=== PATIENT | male | born 1960 | race Two or more races ===

== ENCOUNTER → 2016-12-01 | Outpatient (CLI) | payer OTHER | END | disposition home or self-care (01) | LOC: PTMAIN 09:10 | PROVIDERS: ATTEND Otolaryngology | DX: K21.9 Gastro-esophageal reflux disease without esophagitis (principal); R13.10 Dysphagia, unspecified | CPT/HCPCS: 31579 ==

== ENCOUNTER 2017-12-22 15:03 | Inpatient (IN) | payer OTHER ==
--- NOTE | 2017-12-22 16:36 | ED ---
Skin/Abscess/FB HPI - General Chief complaint: Skin/Abscess/Foreign Body Stated complaint: Rash/Fever Time Seen by Provider: 12/22/17 16:12 Source: patient Mode of arrival: ambulatory Limitations: no limitations - History of Present Illness Initial comments: Is a 57-year-old male with a history of melanoma who is currently being treated with clotilde Kowalski who presents emergency department for right-sided chest wall redness and pain. He states it started approximately 3 hours ago. He states that he does have chronic lymphedema in that right chest and right arm from a previous surgery on his right neck. He states that around 3 hours ago all of a sudden he developed this bright red rash that he describes as a sunburn. He states that he's had this previously and they believed it was due to an infection however water unable to get to the bottom of the actual problem. Patient admits to feeling feverish and having a temp of 99.6 at home. He denies any nausea, vomiting, or diarrhea. No cough or shortness of breath. Denies any other acute complaints. His oncologist advised him to come to the emergency department. - Related Data Home Medications Medication Instructions Recorded Confirmed Aspirin EC [Ecotrin Low Dose] 81 mg PO DAILY 12/22/17 12/22/17 Chantix 1mg 1 mg PO BID 12/22/17 12/22/17 Dapagliflozin Propanediol [Farxiga] 10 mg PO DAILY 12/22/17 12/22/17 Ergocalciferol (Vitamin D2) 50,000 unit PO Q7D 12/22/17 12/22/17 [Vitamin D2] FLUoxetine HCL 40 mg PO DAILY 12/22/17 12/22/17 Levothyroxine Sodium [Synthroid] 150 mcg PO DAILY 12/22/17 12/22/17 Loratadine [Claritin] 10 mg PO DAILY 12/22/17 12/22/17 Metoclopramide HCl [Reglan] 5 mg PO ACHS PRN 12/22/17 12/22/17 Multivitamins, Thera [Multivitamin 1 tab PO DAILY 12/22/17 12/22/17 (formulary)] Omeprazole 20 mg PO DAILY 12/22/17 12/22/17 Allergies Allergy/AdvReac Type Severity Reaction Status Date / Time Iodinated Contrast- Oral and Allergy Nausea & Verified 12/22/17 16:12 IV Dye Vomiting & Diarrhea Review of Systems ROS Statement: Those systems with pertinent positive or pertinent negative responses have been documented in the HPI. ROS Other: All systems not noted in ROS Statement are negative. Past Medical History Past Medical History: Diabetes Mellitus, Hypertension Additional Past Medical History / Comment(s): metastatic melanoma, hairy cell leukemia History of Any Multi-Drug Resistant Organisms: None Reported Additional Past Surgical History / Comment(s): melanoma removal Past Psychological History: No Psychological Hx Reported Smoking Status: Current every day smoker Past Alcohol Use History: None Reported Past Drug Use History: None Reported General Exam - General Exam Comments Initial Comments: Constitutional: Awake alert Appears comfortable Head: Normocephalic atraumatic Eyes: no conjunctival injection No scleral icterus EOMI Neck: No JVD Supple Heart: Regular rate rhythm normal S1-S2 no murmurs Lungs: Clear to auscultation bilaterally No wheezing No rales : Chest wall there is redness and edema to the right chest. It extends from the midline to the nipple line. The rash then extends through the nipple and into the axilla and slightly into the right medial arm. It is blanching. Nontender to palpation. Abdomen: Soft nondistended nontender Extremities: Non edematous DP pulses intact Radial pulses intact Neuro: A&Ox3 No focal neurologic deficits Psych: Appropriate mood and affect Limitations: no limitations Course Vital Signs 12/22/17 12/22/17 15:30 16:49 Temperature 99.6 F Pulse Rate 97 92 Respiratory 20 18 Rate Blood Pressure 127/82 136/73 O2 Sat by Pulse 97 95 Oximetry - Reevaluation(s) Reevaluation #1: 12/22/17 17:22 EKG showing normal sinus rhythm with a rate of 95. There is no abnormal ST segment changes or T-wave inversions. QTC is 469. Other intervals normal. No ectopy. Medical Decision Making - Medical Decision Making This is a 57-year-old male who presented to the emergency department for right chest wall redness. The patient appears to have what looks like cellulitis. He doesn't leukocytosis. Has had low-grade temps. I did speak with his oncologist, Dr. Jesi Forbes at [facility]. After discussion with her was decided that the patient could stay at this hospital however should probably stay overnight for monitoring. The patient was updated on this and agrees. Dr. Jesi Forbes stated that she can be reached on the online and be happy to speak to any of the physicians if need be. - Lab Data Result diagrams: 12/22/17 16:35 12/22/17 16:35 Lab Results 12/22/17 12/22/17 12/22/17 Range/Units 16:35 16:35 16:35 WBC 17.0 H (3.8-10.6) k/uL RBC 4.49 (4.30-5.90) m/uL Hgb 14.4 (13.0-17.5) gm/dL Hct 44.7 (39.0-53.0) % MCV 99.6 (80.0-100.0) fL MCH 32.1 (25.0-35.0) pg MCHC 32.3 (31.0-37.0) g/dL RDW 13.6 (11.5-15.5) % Plt Count 155 (150-450) k/uL Neutrophils % 91 % Lymphocytes % 3 % Monocytes % 3 % Eosinophils % 2 % Basophils % 0 % Neutrophils # 15.5 H (1.3-7.7) k/uL Lymphocytes # 0.6 L (1.0-4.8) k/uL Monocytes # 0.5 (0-1.0) k/uL Eosinophils # 0.3 (0-0.7) k/uL Basophils # 0.0 (0-0.2) k/uL PT (9.0-12.0) sec INR (<1.2) APTT (22.0-30.0) sec Sodium 136 L (137-145) mmol/L Potassium 4.4 (3.5-5.1) mmol/L Chloride 101 (98-107) mmol/L Carbon Dioxide 23 (22-30) mmol/L Anion Gap 12 mmol/L BUN 17 (9-20) mg/dL Creatinine 0.80 (0.66-1.25) mg/dL Est GFR (CKD-EPI)AfAm >90 (>60 ml/min/1.73 sqM) Est GFR (CKD-EPI)NonAf >90 (>60 ml/min/1.73 sqM) Glucose 121 H (74-99) mg/dL Plasma Lactic Acid Tom 1.6 (0.7-2.0) mmol/L Calcium 9.3 (8.4-10.2) mg/dL Total Bilirubin 0.6 (0.2-1.3) mg/dL AST 39 (17-59) U/L ALT 61 (21-72) U/L Alkaline Phosphatase 117 (38-126) U/L Total Protein 7.2 (6.3-8.2) g/dL Albumin 4.2 (3.5-5.0) g/dL Urine Color Urine Appearance (Clear) Urine pH (5.0-8.0) Ur Specific [place] (1.001-1.035) Urine Protein (Negative) Urine Glucose (UA) (Negative) Urine Ketones (Negative) Urine Blood (Negative) Urine Nitrite (Negative) Urine Bilirubin (Negative) Urine Urobilinogen (<2.0) mg/dL Ur Leukocyte Esterase (Negative) 12/22/17 12/22/17 Range/Units 16:35 16:35 WBC (3.8-10.6) k/uL RBC (4.30-5.90) m/uL Hgb (13.0-17.5) gm/dL Hct (39.0-53.0) % MCV (80.0-100.0) fL MCH (25.0-35.0) pg MCHC (31.0-37.0) g/dL RDW (11.5-15.5) % Plt Count (150-450) k/uL Neutrophils % % Lymphocytes % % Monocytes % % Eosinophils % % Basophils % % Neutrophils # (1.3-7.7) k/uL Lymphocytes # (1.0-4.8) k/uL Monocytes # (0-1.0) k/uL Eosinophils # (0-0.7) k/uL Basophils # (0-0.2) k/uL PT 9.7 (9.0-12.0) sec INR 1.0 (<1.2) APTT 24.1 (22.0-30.0) sec Sodium (137-145) mmol/L Potassium (3.5-5.1) mmol/L Chloride (98-107) mmol/L Carbon Dioxide (22-30) mmol/L Anion Gap mmol/L BUN (9-20) mg/dL Creatinine (0.66-1.25) mg/dL Est GFR (CKD-EPI)AfAm (>60 ml/min/1.73 sqM) Est GFR (CKD-EPI)NonAf (>60 ml/min/1.73 sqM) Glucose (74-99) mg/dL Plasma Lactic Acid Tom (0.7-2.0) mmol/L Calcium (8.4-10.2) mg/dL Total Bilirubin (0.2-1.3) mg/dL AST (17-59) U/L ALT (21-72) U/L Alkaline Phosphatase (38-126) U/L Total Protein (6.3-8.2) g/dL Albumin (3.5-5.0) g/dL Urine Color Yellow Urine Appearance Clear (Clear) Urine pH 5.5 (5.0-8.0) Ur Specific [place] 1.016 (1.001-1.035) Urine Protein Negative (Negative) Urine Glucose (UA) 4+ H (Negative) Urine Ketones 1+ H (Negative) Urine Blood Negative (Negative) Urine Nitrite Negative (Negative) Urine Bilirubin Negative (Negative) Urine Urobilinogen <2.0 (<2.0) mg/dL Ur Leukocyte Esterase Negative (Negative) Disposition Clinical Impression: Cellulitis, Leukocytosis Disposition: ADMITTED IP TO THIS HOSP Condition: Stable Referrals: Kenyon Pierce MD [Primary Care Provider] - 1-2 days
[2017-12-22] MEDS: SODIUM CHLORIDE 0.9% 500 ML IV SCH ×3 (16:42→18:52)
[2017-12-22 16:52] LABS: Appearance,Urine Clear (Clear); Bilirubin,Urine Negative (Negative); Blood,Urine Negative (Negative); Color,Urine Yellow; Glucose,Urine (UA) 4+ (Negative); Ketones,Urine 1+ (Negative); Leukocyte Esterase,Urine Negative (Negative); Nitrite,Urine Negative (Negative); PH, Urine 5.5 (5.0-8.0); Protein,Urine Negative (Negative); Specific Gravity,Urine 1.016 (1.001-1.035); Urobilinogen,Urine <2.0 mg/dL (<2.0)
[2017-12-22 16:54] LABS: Basophils % (A) 0 %; Eosinophils # (A) 0.3 k/uL (0-0.7); Eosinophils % (A) 2 %; HCT 44.7 % (39.0-53.0); HGB 14.4 gm/dL (13.0-17.5); Lymphocytes # (A) 0.6 k/uL (1.0-4.8); Lymphocytes % (A) 3 %; MCH 32.1 pg (25.0-35.0); MCHC 32.3 g/dL (31.0-37.0); MCV 99.6 fL (80.0-100.0); Mean Platelet Volume 7.7; Monocytes # (A) 0.5 k/uL (0-1.0); Monocytes % (A) 3 %; Neutrophils # (A) 15.5 k/uL (1.3-7.7); Neutrophils % (A) 91 %; Platelet Count 155 k/uL (150-450); RBC 4.49 m/uL (4.30-5.90); RDW 13.6 % (11.5-15.5)
[2017-12-22 17:01] LABS: ALT 61 U/L (21-72); AST 39 U/L (17-59); Albumin 4.2 g/dL (3.5-5.0); Alkaline Phosphatase 117 U/L (38-126); Anion Gap 12 mmol/L; Blood Urea Nitrogen 17 mg/dL (9-20); Calcium 9.3 mg/dL (8.4-10.2); Carbon Dioxide 23 mmol/L (22-30); Chloride 101 mmol/L (98-107); Glucose 121 mg/dL (74-99); Potassium 4.4 mmol/L (3.5-5.1); Sodium 136 mmol/L (137-145); Total Bilirubin 0.6 mg/dL (0.2-1.3); Total Protein 7.2 g/dL (6.3-8.2)
[2017-12-22 17:03] LABS: Partial Thromboplastin Time 24.1 sec (22.0-30.0); Prothrombin Time 9.7 sec (9.0-12.0)
[2017-12-22] MEDS ORDERED: VANCOMYCIN IV PER PHARMACY 1 EACH MISC MISCELLANE PRN (17:12)
[2017-12-22] MEDS ORDERED: PIPERACILLIN-TAZOBACTAM 3.375 GM in DEXTROSE/WATER 1 50ML.BAG IVPB STA (17:12)
[2017-12-22] MEDS ORDERED: VANCOMYCIN 1,750 MG in SODIUM CHLORIDE 0.9% 250 ML IVPB ONE (17:30)
[2017-12-22] MEDS ORDERED: VANCOMYCIN 1,750 MG in SODIUM CHLORIDE 0.9% 500 ML IVPB ONE (17:34)
[2017-12-22] MEDS ORDERED: NALOXONE 0.4 MG/ML 1 ML VIAL IV PRN ×2 (17:41→18:09)
[2017-12-22] MEDS ORDERED: MORPHINE SULFATE 4 MG/ML SYRINGE IV PRN (18:09)
[2017-12-22] MEDS ORDERED: ACETAMINOPHEN TAB 325 MG TAB PO PRN (18:09)
--- NOTE | 2017-12-22 18:31 | P.HPIM ---
History of Present Illness H&P Date: 12/22/17 Chief Complaint: Skin redness, fevers 57-year-old M with PMH of melanoma, hypertension, diabetes presents to the ED for right chest redness and fevers that has been ongoing since this afternoon. Patient reports going to his oncologist this Monday to receive his treatment for melanoma. Patient underwent infusion of Keytruda. Patient reports a history of lymphedema in the right upper extremity, was given compression stockings to go home. Patient reports right-sided, burning chest pain as well that started this afternoon. Patient states he also felt feverish, measured a temperature of 99.7F. Patient reports 2 previous incidents of right chest cellulitis. Patient reports being admitted at [facility] and [facility]. Last episode was 1-1/2 months ago. Patient denies any chest trauma, nausea, vomiting, cough, shortness of breath, palpitations, any changes in urination or bowel habits. He denies any changes in appetite or weight. Patient does report a pounding frontal headache that began this afternoon. He also endorses whole body aches and myalgias that also started this afternoon. In the ED, patient was noted to have a low-grade temperature of 99.6F. CBC showed a leukocytosis of 17.0 with left shift. Blood work was notable for a sodium of 136, glucose of 121. Urinalysis showed 4+ glucose and 1+ ketones. Patient is admitted for IV antibiotics. Review of Systems All systems: negative Past Medical History Past Medical History: Diabetes Mellitus, Hypertension Additional Past Medical History / Comment(s): metastatic melanoma, hairy cell leukemia History of Any Multi-Drug Resistant Organisms: None Reported Additional Past Surgical History / Comment(s): melanoma removal Past Psychological History: No Psychological Hx Reported Smoking Status: Current every day smoker Past Alcohol Use History: None Reported Past Drug Use History: None Reported Medications and Allergies Home Medications Medication Instructions Recorded Confirmed Type Aspirin EC [Ecotrin Low Dose] 81 mg PO DAILY 12/22/17 12/22/17 History Chantix 1mg 1 mg PO BID 12/22/17 12/22/17 History Dapagliflozin Propanediol [Farxiga] 10 mg PO DAILY 12/22/17 12/22/17 History Ergocalciferol (Vitamin D2) 50,000 unit PO Q7D 12/22/17 12/22/17 History [Vitamin D2] FLUoxetine HCL 40 mg PO DAILY 12/22/17 12/22/17 History Levothyroxine Sodium [Synthroid] 150 mcg PO DAILY 12/22/17 12/22/17 History Loratadine [Claritin] 10 mg PO DAILY 12/22/17 12/22/17 History Metoclopramide HCl [Reglan] 5 mg PO ACHS PRN 12/22/17 12/22/17 History Multivitamins, Thera [Multivitamin 1 tab PO DAILY 12/22/17 12/22/17 History (formulary)] Omeprazole 20 mg PO DAILY 12/22/17 12/22/17 History Allergies Allergy/AdvReac Type Severity Reaction Status Date / Time Iodinated Contrast- Oral and Allergy Nausea & Verified 12/22/17 16:12 IV Dye Vomiting & Diarrhea Physical Exam Vitals: Vital Signs Temp Pulse Resp BP Pulse Ox 12/22/17 18:06 99.4 F 96 18 144/72 95 12/22/17 16:49 92 18 136/73 95 12/22/17 15:30 99.6 F 97 20 127/82 97 Intake and Output 12/22/17 12/22/17 12/22/17 06:59 14:59 22:59 Other: Weight 87.997 kg General: [non toxic], [no distress], [appears at stated age] Derm: [warm], [dry], [erythema over the right shoulder and the right chest] Head: [atraumatic], [normocephalic], [symmetric] Eyes: [EOMI], [no lid lag], [anicteric sclera] Mouth: [no lip lesion], [mucus membranes moist] Cardiovascular: [S1S2 reg], [no murmur], [positive posterior tibial pulse bilateral], [chest wall nontender to palpation] Lungs: [CTA bilateral], [no rhonchi, no rales] , [no accessory muscle use] Abdominal: [soft], [ nontender to palpation], [no guarding], [no appreciable organomegaly] Ext: [no gross muscle atrophy], [no edema], [no contractures] Neuro: [ CN II-XI grossly intact], [no focal neuro deficits] Psych: [Alert], [oriented], [appropriate affect] Results CBC & Chem 7: 12/22/17 16:35 12/22/17 16:35 Labs: Abnormal Lab Results - Last 24 Hours (Table) 12/22/17 12/22/17 12/22/17 Range/Units 16:35 16:35 16:35 WBC 17.0 H (3.8-10.6) k/uL Neutrophils # 15.5 H (1.3-7.7) k/uL Lymphocytes # 0.6 L (1.0-4.8) k/uL Sodium 136 L (137-145) mmol/L Glucose 121 H (74-99) mg/dL Urine Glucose (UA) 4+ H (Negative) Urine Ketones 1+ H (Negative) Thrombosis Risk Factor Assmnt - Choose All That Apply Any of the Below Risk Factors Present?: Yes Each Factor Represents 1 point: Age 41-60 years Other Risk Factors: Yes Each Risk Factor Represents 2 Points: Malignancy Thrombosis Risk Factor Assessment Total Risk Factor Score: 3 Thrombosis Risk Factor Assessment Level: Moderate Risk Assessment and Plan Assessment: Assessment and Plan 1. R chest cellulitis: Patient is immunocompromised with a h/o lymphedema in the RUE. Pain management with Tylenol PO, [place] PO and Morphine IV PRN. Start Vancomycin and Zosyn IV. RUE elevation. Compression stockings when able. FU BCx 2. Melanoma: Followed by Dr. Jesi Forbes at [facility]. 3. Hairy cell leukemia: Followed by Dr. Demarcus Cordova at [facility]. 4. HTN: BP 144/72. States is on Metoprolol at home. Unsure of dosage, will hold as BP is OK. Monitor vitals, adjust medications as necessary. 5. DM: POC glucose 121. PO meds at home. Diabetic diet. ISS. Accuchecks QID. Hypoglycemic precautions. FU A1c 6. Smoking cessation: Continue Chantix 1 mg PO BID. 7. Hypothyroidism: Continue Synthroid 150 mcg PO QD. 8. Depression: Continue Fluoxetine 40 mg PO QD. 9. DVT/GI Prophylaxis: Lovenox 40 mg SQ QD.
[2017-12-22] MEDS: HYDROcodone/APAP 5-325MG 1 EACH TAB PO PRN (18:59)
[2017-12-22] MEDS: VARENICLINE 1 MG TAB PO SCH (19:52)
[2017-12-23] MEDS: PIPERACILLIN-TAZOBACTAM 3.375 GM in DEXTROSE/WATER 1 50ML.BAG IVPB SCH ×3 (01:37→16:49)
[2017-12-23] MEDS ORDERED: MORPHINE ORAL SOLN 10 MG/5 ML CUP PO PRN (05:59)
[2017-12-23] MEDS: HYDROcodone/APAP 5-325MG 1 EACH TAB PO PRN (06:22)
[2017-12-23 07:12] LABS: Glucose,Whole Blood 162 mg/dL (75-99)
[2017-12-23 07:18] LABS: Basophils % (A) 0 %; Eosinophils # (A) 0.1 k/uL (0-0.7); Eosinophils % (A) 1 %; HCT 42.5 % (39.0-53.0); HGB 13.8 gm/dL (13.0-17.5); Lymphocytes # (A) 0.5 k/uL (1.0-4.8); Lymphocytes % (A) 6 %; MCH 32.2 pg (25.0-35.0); MCHC 32.5 g/dL (31.0-37.0); MCV 98.9 fL (80.0-100.0); Mean Platelet Volume 8.1; Monocytes # (A) 0.4 k/uL (0-1.0); Monocytes % (A) 4 %; Neutrophils # (A) 8.5 k/uL (1.3-7.7); Neutrophils % (A) 89 %; Platelet Count 128 k/uL (150-450); RDW 13.4 % (11.5-15.5); WBC 9.5 k/uL (3.8-10.6)
[2017-12-23] MEDS: LEVOTHYROXINE 75 MCG TAB PO SCH (07:39)
[2017-12-23] MEDS: PANTOPRAZOLE 40 MG TABLET PO SCH (07:39)
[2017-12-23] MEDS: ASPIRIN 81 MG PO SCH (07:39)
[2017-12-23] MEDS: VARENICLINE 1 MG TAB PO SCH ×2 (07:40→20:24)
[2017-12-23] MEDS: INSULIN ASPART 100 UNIT/ML 1 ML 10 ML VIAL SQ SCH ×3 (07:40→17:37)
[2017-12-23] MEDS: VANCOMYCIN 1,500 MG in SODIUM CHLORIDE 0.9% 250 ML IVPB SCH ×2 (07:40→20:24)
[2017-12-23] MEDS: FLUoxetine HCL 20 MG CAP PO SCH (07:40)
[2017-12-23] MEDS: ENOXAPARIN 40 MG/0.4 ML SYRINGE SQ SCH (07:40)
[2017-12-23 11:28] LABS: Glucose,Whole Blood 143 mg/dL (75-99)
[2017-12-23 13:17] LABS: Hemoglobin A1C 7.1 % (4.0-6.0)
--- NOTE | 2017-12-23 13:20 | P.PN ---
Subjective Progress Note Date: 12/23/17 Principal diagnosis: Right chest redness and swelling Patient seen and examined. No. Patient denies any fever or chills. He denies any chest pain, shortness of breath, palpitations. Patient reports improvement in right chest redness. He has no other complaints today. Objective - Vital Signs Vital signs: Vital Signs Temp 98.4 F 12/23/17 06:18 Pulse 89 12/23/17 06:18 Resp 18 12/23/17 06:18 BP 136/64 12/23/17 06:18 Pulse Ox 94 L 12/23/17 06:18 Intake & Output 12/22/17 12/23/17 12/23/17 18:59 06:59 18:59 Intake Total 1200 Balance 1200 Weight 87.997 kg 87.997 kg Intake: Intake, IV Titration 1200 Amount Piperacillin-Tazobactam 3 100 .375 gm In Dextrose/Water 1 50ml.bag @ 12.5 mls/hr IVPB Q8HR [facility] Rx#: [id number] Sodium Chloride 0.9% 500 850 ml @ 1000 mls/hr IV Q35M [facility] Rx#:[id number] Vancomycin 1,500 mg In 250 Sodium Chloride 0.9% 250 ml @ 125 mls/hr IVPB Q12HR [facility] Rx#:[id number] Other: Voiding Method Toilet Toilet # Voids 1 - Exam General: [non toxic], [no distress], [appears at stated age] Derm: [warm], [dry], [erythema over the right shoulder and the right chest, improved from yesterday] Head: [atraumatic], [normocephalic], [symmetric] Eyes: [EOMI], [no lid lag], [anicteric sclera] Mouth: [no lip lesion], [mucus membranes moist] Cardiovascular: [S1S2 reg], [no murmur], [positive posterior tibial pulse bilateral], [chest wall nontender to palpation] Lungs: [CTA bilateral], [no rhonchi, no rales] , [no accessory muscle use] Abdominal: [soft], [ nontender to palpation], [no guarding], [no appreciable organomegaly] Ext: [no gross muscle atrophy], [no edema], [no contractures] Neuro: [ CN II-XI grossly intact], [no focal neuro deficits] Psych: [Alert], [oriented], [appropriate affect] - Labs CBC & Chem 7: 12/23/17 06:16 12/22/17 16:35 Labs: Abnormal Lab Results - Last 24 Hours (Table) 12/22/17 12/22/17 12/22/17 Range/Units 16:35 16:35 16:35 WBC 17.0 H (3.8-10.6) k/uL Plt Count (150-450) k/uL Neutrophils # 15.5 H (1.3-7.7) k/uL Lymphocytes # 0.6 L (1.0-4.8) k/uL Sodium 136 L (137-145) mmol/L Glucose 121 H (74-99) mg/dL POC Glucose (mg/dL) (75-99) mg/dL Urine Glucose (UA) 4+ H (Negative) Urine Ketones 1+ H (Negative) 12/23/17 12/23/17 12/23/17 Range/Units 06:16 07:11 11:28 WBC (3.8-10.6) k/uL Plt Count 128 L (150-450) k/uL Neutrophils # 8.5 H (1.3-7.7) k/uL Lymphocytes # 0.5 L (1.0-4.8) k/uL Sodium (137-145) mmol/L Glucose (74-99) mg/dL POC Glucose (mg/dL) 162 H 143 H (75-99) mg/dL Urine Glucose (UA) (Negative) Urine Ketones (Negative) Microbiology - Last 24 Hours (Table) 12/22/17 16:35 Urine Culture - Preliminary Urine,Voided Assessment and Plan Assessment: Assessment and Plan 1. R chest cellulitis: Patient is immunocompromised with a h/o lymphedema in the RUE. Patient is afebrile, leukocytosis on admission of 17 which resolved this morning. Pain management with Tylenol PO, [place] PO and Morphine IV PRN. Continue Vancomycin and Zosyn IV. RUE elevation. Compression stockings when able. FU BCx 2. Melanoma: [facility] 3. Hairy cell leukemia: Followed by Dr. Demarcus Cordova at [facility] . 4. HTN: BP 136/64. States is on Metoprolol at home. Monitor vitals, adjust medications as necessary. 5. DM: POC glucose 143. PO meds at home. Diabetic diet. ISS. Accuchecks QID. Hypoglycemic precautions. FU A1c 6. Smoking cessation: Continue Chantix 1 mg PO BID. 7. Hypothyroidism: Continue Synthroid 150 mcg PO QD. 8. Depression: Continue Fluoxetine 40 mg PO QD. 9. DVT/GI Prophylaxis: Lovenox 40 mg SQ QD. We'll continue IV antibiotics. Pending clinical improvement. Anticipated discharge tomorrow.
[2017-12-23 16:54] LABS: Glucose,Whole Blood 161 mg/dL (75-99)
[2017-12-23 20:51] LABS: Glucose,Whole Blood 155 mg/dL (75-99)
[2017-12-23 21:52] VITALS: RESP 18
[2017-12-24] MEDS: PIPERACILLIN-TAZOBACTAM 3.375 GM in DEXTROSE/WATER 1 50ML.BAG IVPB SCH ×2 (01:24→07:31)
[2017-12-24 05:43] VITALS: BP 158/72; PULSE 67; TEMP 97.5
[2017-12-24 06:55] LABS: Glucose,Whole Blood 151 mg/dL (75-99)
[2017-12-24] MEDS: FLUoxetine HCL 20 MG CAP PO SCH (07:31)
[2017-12-24] MEDS: PANTOPRAZOLE 40 MG TABLET PO SCH (07:31)
[2017-12-24] MEDS: ASPIRIN 81 MG PO SCH (07:31)
[2017-12-24] MEDS: LEVOTHYROXINE 75 MCG TAB PO SCH (07:31)
[2017-12-24] MEDS: ENOXAPARIN 40 MG/0.4 ML SYRINGE SQ SCH (07:31)
[2017-12-24] MEDS: VARENICLINE 1 MG TAB PO SCH (07:31)
[2017-12-24] MEDS: VANCOMYCIN 1,500 MG in SODIUM CHLORIDE 0.9% 250 ML IVPB SCH (07:32)
[2017-12-24] MEDS: INSULIN ASPART 100 UNIT/ML 1 ML 10 ML VIAL SQ SCH (07:32)
--- NOTE | 2017-12-24 10:56 | P.DS ---
Providers Date of admission: 12/23/17 09:18 Expected date of discharge: 12/24/17 Attending physician: Antonella Che MD Primary care physician: Kenyon Pierce - Discharge Diagnosis(es) (1) Melanoma Current Visit: Yes Status: Acute (2) Hairy cell leukemia Current Visit: Yes Status: Acute (3) HTN (hypertension) Current Visit: Yes Status: Acute (4) Diabetes mellitus Current Visit: Yes Status: Acute (5) Hypothyroidism Current Visit: Yes Status: Acute (6) Depression Current Visit: Yes Status: Acute (7) Cellulitis Current Visit: Yes Status: Acute Hospital Course: 57-year-old M with PMH of melanoma, hypertension, diabetes presents to the ED for right chest redness and fevers that has been ongoing since this afternoon. Patient reports going to his oncologist this Monday to receive his treatment for melanoma. Patient underwent infusion of Keytruda. Patient reports a history of lymphedema in the right upper extremity, was given compression stockings to go home. Patient reports right-sided, burning chest pain as well that started this afternoon. Patient states he also felt feverish, measured a temperature of 99.7F. Patient reports 2 previous incidents of right chest cellulitis. Patient reports being admitted at [facility] and [facility]. Last episode was 1-1/2 months ago. Patient denies any chest trauma, nausea, vomiting, cough, shortness of breath, palpitations, any changes in urination or bowel habits. He denies any changes in appetite or weight. Patient does report a pounding frontal headache that began this afternoon. He also endorses whole body aches and myalgias that also started this afternoon. In the ED, patient was noted to have a low-grade temperature of 99.6F. CBC showed a leukocytosis of 17.0 with left shift. Blood work was notable for a sodium of 136, glucose of 121. Urinalysis showed 4+ glucose and 1+ ketones. Patient is admitted for IV antibiotics. his right chest cellulitis was demarcated with a marker. I noticed considerable improvement over the next 2 days of admission. Was initially started on vancomycin and Zosyn IV. patient's leukocytosis on admission resolved on day 2. He was afebrile during his admission. His antibiotics were descalated to Bactrim by mouth twice a day to complete a course of 14 days total.blood cultures were prelim negative after 24 hours on discharge. Patient reported that he followed up with Dr. Jesi Forbes at [facility] for his melanoma. Patient reported following up with Dr. Demarcus Cordova at [facility] for his hairy cell leukemia. Otherwise his home medications were resumed for his hypertension, diabetes, smoking cessation, hypothyroidism and depression. General: [non toxic], [no distress], [appears at stated age] Derm: [warm], [dry], [erythema over the right shoulder and the right chest, improved from yesterday] Head: [atraumatic], [normocephalic], [symmetric] Eyes: [EOMI], [no lid lag], [anicteric sclera] Mouth: [no lip lesion], [mucus membranes moist] Cardiovascular: [S1S2 reg], [no murmur], [positive posterior tibial pulse bilateral], [chest wall nontender to palpation] Lungs: [CTA bilateral], [no rhonchi, no rales] , [no accessory muscle use] Abdominal: [soft], [ nontender to palpation], [no guarding], [no appreciable organomegaly] Ext: [no gross muscle atrophy], [no edema], [no contractures] Neuro: [ CN II-XI grossly intact], [no focal neuro deficits] Psych: [Alert], [oriented], [appropriate affect] Assessment and Plan 1. R chest cellulitis: Patient is immunocompromised with a h/o lymphedema in the RUE. Patient is afebrile, leukocytosis on admission of 17 which resolved this morning. Pain management with Tylenol PO, [place] PO and Morphine IV PRN. DC Vancomycin and Zosyn IV, complete total of 14 days with Bactim DS PO BID. RUE elevation. Compression stockings when able. BCx prelim negative. FU BCx with PCP. 2. Melanoma: Followed by Dr. Jesi Forbes at [facility]. 3. Hairy cell leukemia: Followed by Dr. Demarcus Cordova at [facility]. 4. HTN: BP 158/72. States is on Metoprolol at home. Monitor vitals, adjust medications as necessary. 5. DM: POC glucose 151. PO meds at home. Diabetic diet. ISS. Accuchecks QID. Hypoglycemic precautions. FU A1c 6. Smoking cessation: Continue Chantix 1 mg PO BID. 7. Hypothyroidism: Continue Synthroid 150 mcg PO QD. 8. Depression: Continue Fluoxetine 40 mg PO QD. 9. DVT/GI Prophylaxis: Lovenox 40 mg SQ QD. This complex discharge took greater than 30 minutes. Pertinent Studies: Blood cultures Patient Condition at Discharge: Stable Plan - Discharge Summary Discharge Rx Participant: No New Discharge Prescriptions: New Acetaminophen Tab [Tylenol] 650 mg PO Q6HR PRN tab PRN Reason: Mild Pain Or Fever > 100.5 HYDROcodone/APAP 5-325MG [[place] 5-325] 1 each PO Q4HR PRN tab PRN Reason: Moderate Pain Sulfamethox-Tmp 800-160Mg [Bactrim DS 800-160 mg] 1 tab PO Q12HR #24 tab Continue FLUoxetine HCL 40 mg PO DAILY Omeprazole 20 mg PO DAILY Ergocalciferol (Vitamin D2) [Vitamin D2] 50,000 unit PO Q7D Chantix 1mg 1 mg PO BID Multivitamins, Thera [Multivitamin (formulary)] 1 tab PO DAILY Loratadine [Claritin] 10 mg PO DAILY Levothyroxine Sodium [Synthroid] 150 mcg PO DAILY Dapagliflozin Propanediol [Farxiga] 10 mg PO DAILY Aspirin EC [Ecotrin Low Dose] 81 mg PO DAILY Discontinued Metoclopramide HCl [Reglan] 5 mg PO ACHS PRN PRN Reason: Nausea And Vomiting Discharge Medication List Aspirin EC [Ecotrin Low Dose] 81 mg PO DAILY 12/22/17 [History] Chantix 1mg 1 mg PO BID 12/22/17 [History] Dapagliflozin Propanediol [Farxiga] 10 mg PO DAILY 12/22/17 [History] Ergocalciferol (Vitamin D2) [Vitamin D2] 50,000 unit PO Q7D 12/22/17 [History] FLUoxetine HCL 40 mg PO DAILY 12/22/17 [History] Levothyroxine Sodium [Synthroid] 150 mcg PO DAILY 12/22/17 [History] Loratadine [Claritin] 10 mg PO DAILY 12/22/17 [History] Multivitamins, Thera [Multivitamin (formulary)] 1 tab PO DAILY 12/22/17 [History ] Omeprazole 20 mg PO DAILY 12/22/17 [History] Acetaminophen Tab [Tylenol] 650 mg PO Q6HR PRN tab 12/24/17 [Rx] HYDROcodone/APAP 5-325MG [[place] 5-325] 1 each PO Q4HR PRN tab 12/24/17 [Rx] Sulfamethox-Tmp 800-160Mg [Bactrim DS 800-160 mg] 1 tab PO Q12HR #24 tab [Rx] Follow up Appointment(s)/Referral(s): Kenyon Pierce MD [Primary Care Provider] - 1-2 days Activity/Diet/Wound Care/Special Instructions: Diet: Regular diet. Please follow-up with your primary care provider within 1-2 days of discharge. Please follow-up with your oncologist within 1 week of discharge. Please take all medications as advised. Please come to the ED or call 911 for worsening fevers greater than 100.4F, chest pain, shortness of breath, palpitations, intractable nausea or vomiting. Note to PCP: Please follow up with Blood cultures during admission (preliminary negative on discharge) Discharge Disposition: HOME SELF-CARE Pending Studies Pending Results: Final blood cultures to be followed by PCP
[2017-12-24 11:27] LABS: Glucose,Whole Blood 202 mg/dL (75-99)
[2017-12-24] MEDS ORDERED: VANCOMYCIN TROUGH DUE 1 EACH MISC MISCELLANE ONE (20:00)
== END 2017-12-24 12:15 | disposition home or self-care (01) | DRG 603 ==
LOC: EC 15:03 → 5MS5E 17:41 → OBSVTOIN 12-23 09:18
PROVIDERS: ADMIT Family Medicine; ATTEND Family Medicine
DX: L03.313 Cellulitis of chest wall (principal); C79.9 Secondary malignant neoplasm of unspecified site; C91.40 Hairy cell leukemia not having achieved remission; C43.9 Malignant melanoma of skin, unspecified; D89.9 Disorder involving the immune mechanism, unspecified; E03.9 Hypothyroidism, unspecified; E11.9 Type 2 diabetes mellitus without complications; F17.200 Nicotine dependence, unspecified, uncomplicated; F32.9 Major depressive disorder, single episode, unspecified; I10 Essential (primary) hypertension; I89.0 Lymphedema, not elsewhere classified; M79.1 Myalgia; Z79.899 Other long term (current) drug therapy; Z79.82 Long term (current) use of aspirin; Z79.890 Hormone replacement therapy; Z91.041 Radiographic dye allergy status
CPT/HCPCS: 36415; 80053; 81003; 83036; 83605; 85025; 85610; 85730; 87040; 87086; 93005; 96365; 99284

== ENCOUNTER → 2019-04-02 | Outpatient (CLI) | payer SELFPAY ==
[2019-04-02 12:35] LABS: Basophils % (A) 0 %; Eosinophils # (A) 0.1 k/uL (0-0.7); Eosinophils % (A) 1 %; HCT 51.4 % (39.0-53.0); HGB 16.5 gm/dL (13.0-17.5); Lymphocytes # (A) 0.8 k/uL (1.0-4.8); Lymphocytes % (A) 6 %; MCH 33.7 pg (25.0-35.0); MCV 105.3 fL (80.0-100.0); Macrocytosis Slight; Mean Platelet Volume 7.8; Monocytes # (A) 0.4 k/uL (0-1.0); Monocytes % (A) 3 %; Neutrophils # (A) 11.6 k/uL (1.3-7.7); Neutrophils % (A) 89 %; Platelet Count 167 k/uL (150-450); RBC 4.88 m/uL (4.30-5.90)
[2019-04-02 15:42] LABS: African American GFR (CKD) 68.7 (60.0-200.0); Albumin 4.6 g/dL (3.80-4.90); Albumin/Globulin Ratio 2.09 (1.60-3.17); Anion Gap 9.6 mmol/L (4.00-12.00); BUN/Creat Ratio 24.62 Ratio (12.00-20.00); Calcium 9.8 mg/dL (8.7-10.3); Carbon Dioxide 28.4 mmol/L (21.6-31.8); Globulin 2.2 g/dL (1.6-3.3); Non-African American GFR(CKD) 59.3 (60.0-200.0); Potassium 4.7 mmol/L (3.5-5.5); Total Bilirubin 0.6 mg/dL (0.2-1.2); Total Protein 6.8 g/dL (6.2-8.2)
== END | disposition home or self-care (01) ==
LOC: LABWHC1 12:12
PROVIDERS: ATTEND Internal Medicine Medical Oncology
DX: C79.9 Secondary malignant neoplasm of unspecified site (principal)
CPT/HCPCS: 36415; 80053; 83615; 85025

== ENCOUNTER → 2019-04-09 | Outpatient (CLI) | payer SELFPAY ==
[2019-04-09 19:04] LABS: African American GFR (CKD) 62.8 (60.0-200.0); Albumin 4.3 g/dL (3.80-4.90); Albumin/Globulin Ratio 2.26 (1.60-3.17); Anion Gap 7.7 mmol/L (4.00-12.00); BUN/Creat Ratio 19.29 Ratio (12.00-20.00); Calcium 9.2 mg/dL (8.7-10.3); Carbon Dioxide 25.3 mmol/L (21.6-31.8); Globulin 1.9 g/dL (1.6-3.3); Non-African American GFR(CKD) 54.2 (60.0-200.0); Total Bilirubin 0.5 mg/dL (0.3-1.2); Total Protein 6.2 g/dL (6.2-8.2)
== END | disposition home or self-care (01) ==
LOC: LABWHC1 14:03
PROVIDERS: ATTEND Internal Medicine Medical Oncology
DX: C79.9 Secondary malignant neoplasm of unspecified site (principal)
CPT/HCPCS: 36415; 80053

== ENCOUNTER → 2019-04-15 | Outpatient (CLI) | payer OTHER ==
[2019-04-15 10:30] LABS: ALT 101 U/L (4-49); AST 43 U/L (17-59); African American GFR (CKD) >90 (>60 ml/min/1.73 sqM); Albumin 4.3 g/dL (3.5-5.0); Albumin/Globulin Ratio 1.4; Alkaline Phosphatase 89 U/L (38-126); Anion Gap 8 mmol/L; Blood Urea Nitrogen 24 mg/dL (9-20); Calcium 9.6 mg/dL (8.4-10.2); Carbon Dioxide 28 mmol/L (22-30); Chloride 106 mmol/L (98-107); Globulin 3.1 g/dL; Glucose 190 mg/dL (74-99); Non-African American GFR(CKD) 88 (>60 ml/min/1.73 sqM); Potassium 4.5 mmol/L (3.5-5.1); Sodium 142 mmol/L (137-145); Total Bilirubin 0.6 mg/dL (0.2-1.3); Total Protein 7.4 g/dL (6.3-8.2)
== END | disposition home or self-care (01) ==
LOC: LABWHC1 09:44
PROVIDERS: ATTEND Internal Medicine Medical Oncology
DX: R73.9 Hyperglycemia, unspecified (principal)
CPT/HCPCS: 36415; 80053

== ENCOUNTER → 2019-05-28 | Outpatient (CLI) | payer MEDICARE ==
[2019-05-28 10:09] LABS: Basophils # (A) 0.1 k/uL (0-0.2); Basophils % (A) 1 %; Eosinophils # (A) 0.1 k/uL (0-0.7); Eosinophils % (A) 1 %; HCT 48.2 % (39.0-53.0); HGB 15.5 gm/dL (13.0-17.5); Lymphocytes # (A) 1.8 k/uL (1.0-4.8); Lymphocytes % (A) 19 %; MCH 33.4 pg (25.0-35.0); MCHC 32.1 g/dL (31.0-37.0); Macrocytosis Slight; Mean Platelet Volume 8.1; Monocytes # (A) 0.3 k/uL (0-1.0); Monocytes % (A) 3 %; Neutrophils % (A) 75 %; Platelet Count 153 k/uL (150-450); RBC 4.63 m/uL (4.30-5.90); RDW 13.3 % (11.5-15.5); WBC 9.3 k/uL (3.8-10.6)
[2019-05-28 10:20] LABS: INR 0.9 (<1.2); Prothrombin Time 9.4 sec (9.0-12.0)
[2019-05-28 17:41] LABS: ALT 216 U/L (10-49); AST 52 U/L (14-35); African American GFR (CKD) 94.4 (60.0-200.0); Alkaline Phosphatase 71 U/L (41-126); Bilirubin, Conjugated <0.20 mg/dL (0.20-0.40); Calcium 9.7 mg/dL (8.7-10.3); Carbon Dioxide 28.9 mmol/L (21.6-31.8); Chloride 100 mmol/L (96-109); Globulin 1.8 g/dL (1.6-3.3); Glucose 306 mg/dL (70-110); Non-African American GFR(CKD) 81.4 (60.0-200.0); Potassium 4.6 mmol/L (3.5-5.5); Sodium 138 mmol/L (135-145); Total Bilirubin 0.5 mg/dL (0.3-1.2); Total Protein 6.3 g/dL (6.2-8.2)
== END | disposition home or self-care (01) ==
LOC: LABWHC1 09:01
PROVIDERS: ATTEND Internal Medicine
DX: R94.5 Abnormal results of liver function studies (principal)
CPT/HCPCS: 36415; 80053; 82248; 85025; 85610

== ENCOUNTER 2019-07-12 17:44 | Observation (INO) | payer MEDICARE ==
[2019-07-12] MEDS ORDERED: HEPARIN SODIUM,PORCINE 5,000 UNIT/ML 1 ML VIAL IV PRN (18:07)
[2019-07-12] MEDS ORDERED: HEPARIN SODIUM,PORCINE 10,000 UNIT/ML 1 ML VIAL IV ONE (18:07)
[2019-07-12] MEDS ORDERED: SODIUM CHLORIDE 0.9% 1,000 ML IV STA (18:07)
--- NOTE | 2019-07-12 18:08 | ED ---
SOB HPI - General Chief Complaint: Shortness of Breath Stated Complaint: PE Time Seen by Provider: 07/12/19 18:06 Source: patient, RN notes reviewed, old records reviewed Mode of arrival: ambulatory Limitations: no limitations - History of Present Illness Initial Comments: This is a 59-year-old male DF for evaluation patient having outpatient testing today different cancer follow-up. Patient is CT of his chest and pelvis at bedtime he has history of CAD, patient was found of PE told to come to the ER, the hospital for evaluation treatment. Patient has no complaints no chest pain no shortness of breath no prior history of PE. No cough congestion no fevers MD Complaint: shortness of breath -: days(s) Severity: moderate Severity scale (1-10): 5 Consistency: constant Improves With: nothing Worsens With: nothing Known History Of: other (CA) Context: anxiety Treatments Prior to Arrival: none - Related Data Home Medications Medication Instructions Recorded Confirmed Aspirin EC [Ecotrin Low Dose] 81 mg PO DAILY 12/22/17 12/22/17 Chantix 1mg 1 mg PO BID 12/22/17 12/22/17 Dapagliflozin Propanediol [Farxiga] 10 mg PO DAILY 12/22/17 12/22/17 Ergocalciferol (Vitamin D2) 50,000 unit PO Q7D 12/22/17 12/22/17 [Vitamin D2] FLUoxetine HCL 40 mg PO DAILY 12/22/17 12/22/17 Levothyroxine Sodium [Synthroid] 150 mcg PO DAILY 12/22/17 12/22/17 Loratadine [Claritin] 10 mg PO DAILY 12/22/17 12/22/17 Multivitamins, Thera [Multivitamin 1 tab PO DAILY 12/22/17 12/22/17 (formulary)] Omeprazole 20 mg PO DAILY 12/22/17 12/22/17 Previous Rx's Medication Instructions Recorded Acetaminophen Tab [Tylenol] 650 mg PO Q6HR PRN tab 12/24/17 HYDROcodone/APAP 5-325MG [[place] 1 each PO Q4HR PRN tab 12/24/17 5-325] Sulfamethox-Tmp 800-160Mg [Bactrim 1 tab PO Q12HR #24 tab 12/24/17 DS 800-160 mg] Allergies Allergy/AdvReac Type Severity Reaction Status Date / Time No Known Allergies Allergy Verified 07/12/19 18:13 Review of Systems ROS Statement: Those systems with pertinent positive or pertinent negative responses have been documented in the HPI. ROS Other: All systems not noted in ROS Statement are negative. Past Medical History Past Medical History: Cancer, Diabetes Mellitus, GERD/Reflux, Hypertension, Thyroid Disorder Additional Past Medical History / Comment(s): per pt dx 3-2016 w/ melanoma(rt upper chest ) had sx to remove cancer along with multiple lymph nodes rt axilla also had 20 radiation tx and is taking keytruda. pt further stated has mets to lung and " tiny spot outside the brain" had 1 intense radiation tx for spot on brain approx 6 months ago- other than lung bx-no other sx on lung but taking keytruda. 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 past gerd pt stated he's not taking meds for it any more. age 10 broke rt wrist-had it reset/casted. History of Any Multi-Drug Resistant Organisms: None Reported Additional Past Surgical History / Comment(s): melanoma /lymph nodes removal. age 10 had benign moles removed. Past Anesthesia/Blood Transfusion Reactions: No Reported Reaction Additional Past Anesthesia/Blood Transfusion Reaction / Comment(s): has had blood transfusions-no reaction Past Psychological History: No Psychological Hx Reported Smoking Status: Current every day smoker - Past Family History Mother Family Medical History: Dementia, Deep Vein Thrombosis (DVT), Hypertension Additional Family Medical History / Comment(s): from complications form alzheimers Father Family Medical History: CVA/TIA, Diabetes Mellitus, Hypertension Additional Family Medical History / Comment(s): hernias, colitis. General Exam Limitations: no limitations General appearance: alert, in no apparent distress, anxious Head exam: Present: atraumatic, normocephalic, normal inspection Eye exam: Present: normal appearance, PERRL, EOMI. Absent: scleral icterus, conjunctival injection, periorbital swelling ENT exam: Present: normal exam, mucous membranes moist Neck exam: Present: normal inspection. Absent: tenderness, meningismus, lymphadenopathy Respiratory exam: Present: normal lung sounds bilaterally. Absent: respiratory distress, wheezes, rales, rhonchi, stridor Cardiovascular Exam: Present: regular rate, normal rhythm, normal heart sounds. Absent: systolic murmur, diastolic murmur, rubs, gallop, clicks GI/Abdominal exam: Present: soft, normal bowel sounds. Absent: distended, tenderness, guarding, rebound, rigid Extremities exam: Present: normal inspection, full ROM, normal capillary refill. Absent: tenderness, pedal edema, joint swelling, calf tenderness Back exam: Present: normal inspection Neurological exam: Present: alert, oriented X3, CN II-XII intact Psychiatric exam: Present: normal affect, normal mood Skin exam: Present: warm, dry, intact, normal color. Absent: rash Course Vital Signs 07/12/19 07/12/19 17:45 19:00 Temperature 98.4 F Pulse Rate 94 77 Respiratory 18 19 Rate Blood Pressure 158/76 133/89 O2 Sat by Pulse 97 98 Oximetry - Reevaluation(s) Reevaluation #1: 07/12/19 19:53 medical record and outpatient scans are reviewed 07/12/19 19:53 small perigheral Rsided PE, no strain Medical Decision Making - Lab Data Result diagrams: 07/12/19 18:05 07/12/19 18:05 Lab Results 07/12/19 07/12/19 07/12/19 Range/Units 18:05 18:05 18:05 WBC 8.0 (3.8-10.6) k/uL RBC 4.52 (4.30-5.90) m/uL Hgb 15.2 (13.0-17.5) gm/dL Hct 46.9 (39.0-53.0) % MCV 103.8 H (80.0-100.0) fL MCH 33.6 (25.0-35.0) pg MCHC 32.4 (31.0-37.0) g/dL RDW 13.1 (11.5-15.5) % Plt Count 203 (150-450) k/uL Neutrophils % 75 % Lymphocytes % 15 % Monocytes % 6 % Eosinophils % 1 % Basophils % 1 % Neutrophils # 6.0 (1.3-7.7) k/uL Lymphocytes # 1.2 (1.0-4.8) k/uL Monocytes # 0.5 (0-1.0) k/uL Eosinophils # 0.1 (0-0.7) k/uL Basophils # 0.0 (0-0.2) k/uL Macrocytosis Slight PT 9.4 (9.0-12.0) sec INR 0.9 (<1.2) APTT 21.7 L (22.0-30.0) sec D-Dimer 2.81 H (<0.60) mg/L FEU Sodium 133 L (137-145) mmol/L Potassium 5.0 (3.5-5.1) mmol/L Chloride 102 (98-107) mmol/L Carbon Dioxide 20 L (22-30) mmol/L Anion Gap 11 mmol/L BUN 18 (9-20) mg/dL Creatinine 0.91 (0.66-1.25) mg/dL Est GFR (CKD-EPI)AfAm >90 (>60 ml/min/1.73 sqM) Est GFR (CKD-EPI)NonAf >90 (>60 ml/min/1.73 sqM) Glucose 308 H (74-99) mg/dL Calcium 9.6 (8.4-10.2) mg/dL Magnesium 2.1 (1.6-2.3) mg/dL Total Bilirubin 0.5 (0.2-1.3) mg/dL AST 94 H (17-59) U/L ALT 141 H (4-49) U/L Alkaline Phosphatase 91 (38-126) U/L Troponin I (0.000-0.034) ng/mL NT-Pro-B Natriuret Pep pg/mL Total Protein 7.4 (6.3-8.2) g/dL Albumin 4.4 (3.5-5.0) g/dL 07/12/19 07/12/19 Range/Units 18:05 18:05 WBC (3.8-10.6) k/uL RBC (4.30-5.90) m/uL Hgb (13.0-17.5) gm/dL Hct (39.0-53.0) % MCV (80.0-100.0) fL MCH (25.0-35.0) pg MCHC (31.0-37.0) g/dL RDW (11.5-15.5) % Plt Count (150-450) k/uL Neutrophils % % Lymphocytes % % Monocytes % % Eosinophils % % Basophils % % Neutrophils # (1.3-7.7) k/uL Lymphocytes # (1.0-4.8) k/uL Monocytes # (0-1.0) k/uL Eosinophils # (0-0.7) k/uL Basophils # (0-0.2) k/uL Macrocytosis PT (9.0-12.0) sec INR (<1.2) APTT (22.0-30.0) sec D-Dimer (<0.60) mg/L FEU Sodium (137-145) mmol/L Potassium (3.5-5.1) mmol/L Chloride (98-107) mmol/L Carbon Dioxide (22-30) mmol/L Anion Gap mmol/L BUN (9-20) mg/dL Creatinine (0.66-1.25) mg/dL Est GFR (CKD-EPI)AfAm (>60 ml/min/1.73 sqM) Est GFR (CKD-EPI)NonAf (>60 ml/min/1.73 sqM) Glucose (74-99) mg/dL Calcium (8.4-10.2) mg/dL Magnesium (1.6-2.3) mg/dL Total Bilirubin (0.2-1.3) mg/dL AST (17-59) U/L ALT (4-49) U/L Alkaline Phosphatase (38-126) U/L Troponin I <0.012 (0.000-0.034) ng/mL NT-Pro-B Natriuret Pep 38 pg/mL Total Protein (6.3-8.2) g/dL Albumin (3.5-5.0) g/dL - EKG Data -: EKG Interpreted by Me (EKG shows sinus rhythm of 84, OR 196, QRS 62, QTC 4:30) - Radiology Data Radiology results: report reviewed (CT angio Chest positive for PE) Critical Care Time Critical Care Time: Yes Total Critical Care Time: 31 Disposition Clinical Impression: Acute pulmonary embolism Disposition: ADMITTED IP TO THIS HOSP Condition: Good Is patient prescribed a controlled substance at d/c from ED?: No Referrals: Kenyon Pierce MD [Primary Care Provider] - 1-2 days
[2019-07-12] MEDS ORDERED: HEPARIN SOD,PORK IN 0.45% NACL 25,000 UNIT in 0.45% NACL 1 250ML.BAG IV SCH (18:15)
[2019-07-12 18:20] LABS: Basophils % (A) 1 %; Eosinophils # (A) 0.1 k/uL (0-0.7); Eosinophils % (A) 1 %; HCT 46.9 % (39.0-53.0); HGB 15.2 gm/dL (13.0-17.5); Lymphocytes # (A) 1.2 k/uL (1.0-4.8); Lymphocytes % (A) 15 %; MCH 33.6 pg (25.0-35.0); MCHC 32.4 g/dL (31.0-37.0); MCV 103.8 fL (80.0-100.0); Macrocytosis Slight; Mean Platelet Volume 8.7; Monocytes # (A) 0.5 k/uL (0-1.0); Monocytes % (A) 6 %; Neutrophils % (A) 75 %; Platelet Count 203 k/uL (150-450); RBC 4.52 m/uL (4.30-5.90); RDW 13.1 % (11.5-15.5)
[2019-07-12 18:30] LABS: ALT 141 U/L (4-49); AST 94 U/L (17-59); African American GFR (CKD) >90 (>60 ml/min/1.73 sqM); Albumin 4.4 g/dL (3.5-5.0); Alkaline Phosphatase 91 U/L (38-126); Anion Gap 11 mmol/L; Blood Urea Nitrogen 18 mg/dL (9-20); Calcium 9.6 mg/dL (8.4-10.2); Carbon Dioxide 20 mmol/L (22-30); Chloride 102 mmol/L (98-107); Glucose 308 mg/dL (74-99); Magnesium 2.1 mg/dL (1.6-2.3); Non-African American GFR(CKD) >90 (>60 ml/min/1.73 sqM); Sodium 133 mmol/L (137-145); Total Bilirubin 0.5 mg/dL (0.2-1.3); Total Protein 7.4 g/dL (6.3-8.2)
[2019-07-12 18:45] LABS: INR 0.9 (<1.2); Partial Thromboplastin Time 21.7 sec (22.0-30.0); Prothrombin Time 9.4 sec (9.0-12.0)
[2019-07-12 19:09] LABS: D-Dimer 2.81 mg/L FEU (<0.60)
[2019-07-12] MEDS ORDERED: NITROGLYCERIN SL TABS 0.4 MG TAB SUBLINGUAL PRN (19:51)
[2019-07-12] MEDS ORDERED: MORPHINE SULFATE 4 MG/ML SYRINGE IV PRN (19:51)
[2019-07-12] MEDS: SODIUM CHLORIDE 0.9% 1,000 ML IV SCH (22:18)
[2019-07-13 04:50] LABS: Glucose,Whole Blood 155 mg/dL (75-99)
[2019-07-13] MEDS: SODIUM CHLORIDE 0.9% 1,000 ML IV SCH (05:20)
[2019-07-13 07:08] LABS: Basophils % (A) 0 %; Eosinophils # (A) 0.1 k/uL (0-0.7); Eosinophils % (A) 2 %; HCT 40.6 % (39.0-53.0); HGB 13.4 gm/dL (13.0-17.5); Lymphocytes # (A) 1.2 k/uL (1.0-4.8); Lymphocytes % (A) 19 %; MCH 34.6 pg (25.0-35.0); MCHC 33.1 g/dL (31.0-37.0); MCV 104.4 fL (80.0-100.0); Macrocytosis Slight; Mean Platelet Volume 8.7; Monocytes # (A) 0.4 k/uL (0-1.0); Monocytes % (A) 7 %; Neutrophils # (A) 4.4 k/uL (1.3-7.7); Neutrophils % (A) 69 %; Platelet Count 143 k/uL (150-450); RBC 3.89 m/uL (4.30-5.90); RDW 13.1 % (11.5-15.5); WBC 6.3 k/uL (3.8-10.6)
[2019-07-13 07:24] LABS: INR 0.9 (<1.2); Prothrombin Time 9.9 sec (9.0-12.0)
[2019-07-13 09:00] LABS: Cholesterol 246 mg/dL (<200); HDL Cholesterol 56 mg/dL (40-60)
[2019-07-13] MEDS ORDERED: ASPIRIN 325 MG TAB PO SCH (09:00)
[2019-07-13 09:08] LABS: Triglycerides 591 mg/dL (<150)
--- NOTE | 2019-07-13 09:38 | CONS ---
CONSULTATION Mr. Wolfe is a 59-year-old gentleman who is seen for cardiac evaluation. This patient has a history of metastatic melanoma and has been followed at the [facility]. The patient had a routine CT scan at [facility] and patient was found to have a blood clot in his lung and the patient was advised to come over here. The patient denies any chest pain or shortness of breath. The patient has a history of diabetes, hypertension, and the patient denies any history of myocardial infarction, is physically and functionally active. HOME MEDICATIONS: The patient's home medications include aspirin once a day, Chantix 1 mg daily, Farxiga 10 mg daily, Synthroid, Claritin, Bactrim twice a day, hydrocodone, and Tylenol. REVIEW OF SYSTEMS: Otherwise unremarkable. PAST MEDICAL HISTORY: Includes a history of metastatic melanoma, history of hypertension and diabetes. PHYSICAL EXAMINATION: At present reveal a 59-year-old, obesely-built gentleman who does not appear to be in any acute distress. Blood pressure is 143/72 mmHg, the heart rate is 80 per minute. HEENT examination is negative. Neck is supple. There is no increase in jugular venous pressure. Both the carotid pulses are felt. There is no bruit. Chest is symmetrical. Heart PMI is not felt. First and second heart sounds were normal. There is no evidence of any murmur. Lungs are clinically clear to auscultation and percussion. Abdomen is soft. Liver and spleen are not enlarged. Bowel sounds are heard. Extremities, peripheral pulsations are 2+. EKG shows normal sinus rhythm with intermittent PVCs. Laboratory tests show patient's D-dimer was 2.81, hemoglobin is 13.4, troponins are normal, ProBNP level is 38. FINAL IMPRESSION: This patient has been diagnosed with a pulmonary embolism by CT scan. The patient has a history of metastatic melanoma. The patient is cardiac-putnam stable. The patient's proBNP level and troponins are normal. EKG does no show any abnormality. The patient has mildly elevated liver enzymes. The patient is started on heparin. We will get a heme/Onc consult for recommendation for the long-term anticoagulation. MMODL / IJN: [id number] /
[2019-07-13 09:53] LABS: African American GFR (CKD) >90 (>60 ml/min/1.73 sqM); Anion Gap 8 mmol/L; Blood Urea Nitrogen 15 mg/dL (9-20); Calcium 9.2 mg/dL (8.4-10.2); Carbon Dioxide 19 mmol/L (22-30); Chloride 110 mmol/L (98-107); Glucose 179 mg/dL (74-99); Non-African American GFR(CKD) >90 (>60 ml/min/1.73 sqM); Potassium 4.3 mmol/L (3.5-5.1); Sodium 137 mmol/L (137-145)
[2019-07-13] MEDS ORDERED: HYDROcodone/APAP 10-325MG 1 EACH TAB PO PRN (10:59)
[2019-07-13] MEDS ORDERED: ACETAMINOPHEN TAB 325 MG TAB PO PRN (10:59)
[2019-07-13] MEDS ORDERED: predniSONE 5 MG TAB PO SCH (11:00)
[2019-07-13] MEDS ORDERED: MULTIVITAMINS, THERA 1 EACH TAB PO SCH (11:00)
[2019-07-13] MEDS ORDERED: PANTOPRAZOLE 40 MG TABLET PO SCH (11:00)
[2019-07-13] MEDS ORDERED: LEVOTHYROXINE 75 MCG TAB PO SCH (11:00)
[2019-07-13] MEDS ORDERED: Canagliflozin [Invokana] PO SCH (11:00)
[2019-07-13] MEDS ORDERED: METOPROLOL TARTRATE 50 MG TAB PO SCH (11:00)
[2019-07-13] MEDS ORDERED: FLUoxetine HCL 20 MG CAP PO SCH (11:00)
[2019-07-13] MEDS ORDERED: METOCLOPRAMIDE 5 MG TAB PO SCH (11:00)
--- NOTE | 2019-07-13 11:06 | ECHOF ---
Referral Reason:PE MEASUREMENTS -------- HEIGHT: 170.2 cm WEIGHT: 84.4 kg BP: 138/77 RVIDd: 3.8 cm (< 3.3) IVSd: 1.4 cm (0.6 - 1.1) LVIDd: 3.4 cm (3.9 - 5.3) LVPWd: 1.6 cm (0.6 - 1.1) IVSs: 1.8 cm LVIDs: 2.3 cm LVPWs: 2.0 cm LAESV Index (A-L): 16.40 ml/m Ao Diam: 3.9 cm (2.0 - 3.7) AV Cusp: 2.1 cm (1.5 - 2.6) MV EXCURSION: 18.395 mm (> 18.000) MV EF SLOPE: 45 mm/s (70 - 150) EPSS: 1.1 cm MV E Cristian: 0.76 m/s MV DecT: 239 ms MV A Cristian: 0.86 m/s MV E/A Ratio: 0.88 RAP: 5.00 mmHg RVSP: 23.81 mmHg FINDINGS -------- Sinus rhythm. This was a technically difficult study with suboptimal apical views. The left ventricular size is normal. There is moderate concentric left ventricular hypertrophy. O verall left ventricular systolic function is normal with, an EF between 55 - 60 %. The diastolic fi lling pattern is normal for the age of the patient 10.06. The right ventricle is mildly enlarged. Normal LA size by volume 22+/-6 ml/m2. The right atrial size is normal. xx ml of Lumason was utilized for enhancement of images. Interatrial and interventricular septum intact. The aortic valve is trileaflet, and appears structurally normal. No aortic stenosis or regurgitation. The mitral valve is normal. There is trace mitral regurgitation. Mild tricuspid regurgitation present. There is no evidence of pulmonary hypertension. The right v entricular systolic pressure, as measured by Doppler, is 23.81mmHg. There is no pulmonic regurgitation present. The aortic root size is normal. IVC Not well visulized. There is no pericardial effusion. CONCLUSIONS -------- 1. Sinus rhythm. 2. This was a technically difficult study with suboptimal apical views. 3. The left ventricular size is normal. 4. There is moderate concentric left ventricular hypertrophy. 5. Overall left ventricular systolic function is normal with, an EF between 55 - 60 %. 6. The diastolic filling pattern is normal for the age of the patient 10.06 7. The right ventricle is mildly enlarged. 8. Normal LA size by volume 22+/-6 ml/m2. 9. xx ml of Lumason was utilized for enhancement of images. 10. The aortic valve is trileaflet, and appears structurally normal. No aortic stenosis or regurgitat ion. 11. There is trace mitral regurgitation. 12. Mild tricuspid regurgitation present. 13. There is no pulmonic regurgitation present. 14. IVC Not well visulized. 15. There is no pericardial effusion. GRADUATE INTERNSHIP: [employer]eballos RDCS
[2019-07-13] MEDS ORDERED: RIVAROXABAN 15 MG TAB PO SCH (12:00)
[2019-07-13 12:13] VITALS: BP 177/84; PULSE 82; RESP 18; TEMP 96.3
--- NOTE | 2019-07-13 12:53 | P.CNPUL ---
History of Present Illness Consult date: 07/13/19 Requesting physician: Pierce Barton Reason for consult: pulmonary embolism Chief complaint: Abnormal CT of the chest, positive for pulmonary embolism. History of present illness: This is a 59-year-old white male with known history of metastatic melanoma for the last 3 years. Patient is normally followed at the [facility], and he was requested to have a follow-up CT of the chest in [facility], patient went home and he was later notified that his CT of the chest showed p ulmonary embolism. Patient was advised to go to the emergency room . Patient had no pulmonary symptoms whatsoever. He had no cough no wheezing no shortness of breath no chest pain no fever no chills no hemoptysis. Presented to the ER, apparently the ER physician communicated with the facility where the CT of the chest was done, and he recommended that he gets admitted. Patient had no previous history of DVT or pulmonary embolism. In addition the patient did not have any single pulmonary symptoms whatsoever. Review of Systems Constitutional: Denies any constitutional symptoms. Pulmonary: Denies any pulmonary symptoms. Cardiac: Denies any chest pain, syncope, palpitations, diaphoresis. GI: Denies nausea vomiting abdominal pain melena or hematemesis Genitourinary: Denies any dysuria frequency urgency or hematuria. Neurologic: Denies any headache blurred vision or dizziness Psychiatric: Denies any symptoms of active depression Hematologic: Denies any clotting bleeding or bruising Endocrine: Denies any heat or cold intolerance Skin: Denies any rashes. Denies any pruritus. Musculoskeletal: Denies any limitation in range of motion denies any arthralgia or myalgia. Past Medical History Past Medical History: Cancer, Diabetes Mellitus, GERD/Reflux, Hypertension, Thyroid Disorder Additional Past Medical History / Comment(s): per pt dx 3-2017 w/ melanoma(rt upper chest ) had sx to remove cancer along with multiple lymph nodes rt axilla also had 20 radiation tx and is taking keytruda. pt further stated has mets to lung and " tiny spot outside the brain" had 1 intense radiation tx for spot on brain approx 6 months ago- other than lung bx-no other sx on lung but taking keytruda. 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 past gerd pt stated he's not taking meds for it any more. age 10 broke rt wrist-had it reset/casted. History of Any Multi-Drug Resistant Organisms: None Reported Additional Past Surgical History / Comment(s): melanoma /lymph nodes removal. age 10 had benign moles removed. Past Anesthesia/Blood Transfusion Reactions: No Reported Reaction Additional Past Anesthesia/Blood Transfusion Reaction / Comment(s): has had blood transfusions-no reaction Past Psychological History: No Psychological Hx Reported Smoking Status: Former smoker Past Alcohol Use History: None Reported Additional Past Alcohol Use History / Comment(s): started smoking at age 13 smokes 5-10 cig per day. Past Drug Use History: None Reported - Past Family History Mother Family Medical History: Dementia, Deep Vein Thrombosis (DVT), Hypertension Additional Family Medical History / Comment(s): from complications form alzheimers Father Family Medical History: CVA/TIA, Diabetes Mellitus, Hypertension Additional Family Medical History / Comment(s): hernias, colitis. Medications and Allergies Home Medications Medication Instructions Recorded Confirmed Type Aspirin EC [Ecotrin Low Dose] 81 mg PO DAILY 12/22/17 07/12/19 History Ergocalciferol (Vitamin D2) 50,000 unit PO Q7D 12/22/17 07/12/19 History [Vitamin D2] FLUoxetine HCL 40 mg PO DAILY 12/22/17 07/12/19 History Levothyroxine Sodium [Synthroid] 150 mcg PO DAILY 12/22/17 07/12/19 History Multivitamins, Thera [Multivitamin 1 tab PO DAILY 12/22/17 07/12/19 History (formulary)] Omeprazole 20 mg PO DAILY 12/22/17 07/12/19 History Acetaminophen Tab [Tylenol] 650 mg PO Q6HR PRN tab 12/24/17 07/12/19 Rx Canagliflozin [Invokana] 300 mg PO DAILY 07/12/19 07/12/19 History Dapagliflozin Propanediol [Farxiga] 10 mg PO DIRECTED 07/12/19 07/12/19 History HYDROcodone/APAP 10-325MG [[place] 1 tab PO BID PRN 07/12/19 07/12/19 History 10-325] Metoclopramide [Reglan] 5 mg PO DAILY 07/12/19 07/12/19 History Metoprolol Tartrate [Lopressor] 50 mg PO BID 07/12/19 07/12/19 History predniSONE 5 mg PO BID 07/12/19 07/12/19 History Rivaroxaban [Xarelto Starter Pack] 0 mg PO DIRECTED 30 Days #1 pack 07/13/19 Rx Allergies Allergy/AdvReac Type Severity Reaction Status Date / Time No Known Allergies Allergy Verified 07/12/19 20:33 Physical Exam Vitals: Vital Signs Temp Pulse Pulse Resp BP BP Pulse Ox 07/13/19 12:00 96.3 F L 82 18 177/84 97 07/13/19 08:58 97.8 F 07/13/19 08:00 79 16 143/72 95 07/13/19 03:22 97.6 F 68 18 138/77 97 07/13/19 01:32 98.0 F 63 18 130/75 95 07/12/19 22:32 97.5 F L 72 18 125/84 95 07/12/19 20:48 98.0 F 83 18 131/78 97 07/12/19 19:00 77 19 133/89 98 07/12/19 17:45 98.4 F 94 18 158/76 97 Intake and Output 07/12/19 07/13/19 07/13/19 22:59 06:59 14:59 Intake Total 630 875.927 358 Output Total 300 300 Balance 330 575.927 358 Intake: Intake, IV Titration 390 875.927 Amount Heparin Sod,Pork in 0.45% 115.927 NaCl 25,000 unit In 0.45 % NaCl 1 250ml.bag @ 18 UNITS/KG/HR 15.023 mls/hr IV .[id number] ROSA Rx#: [id number] Sodium Chloride 0.9% 1, 500 000 ml @ 100 mls/hr IV . Q10H ROSA Rx#:[id number] Sodium Chloride 0.9% 1, 390 260 000 ml @ 130 mls/hr IV . Q7H42M STA Rx#:[id number] Oral 240 358 Output: Urine 300 300 Other: Voiding Method Toilet Urinal Weight 83.461 kg 84.4 kg Physical Exam: Revealed a 59-year-old male no distress. Head: Atraumatic normocephalic. HEENT:[Neck is supple.] [No neck masses.] [No thyromegaly.] [No JVD.] Chest: [Clear throughout, no crackles, no rhonchi, no wheezes.] Cardiac Exam: [Normal S1 and S2, no S3 gallop, no murmur.] Abdomen: [Soft, nontender, no megaly, no rebound, no guarding, normal bowel sounds.] Extremities: [No clubbing, no edema, no cyanosis.] Neurological Exam: [No focal neurologic deficit.] Psychiatric: Normal mood affect and normal mental status examination. Skin: No rashes. Results - Laboratory Findings CBC and BMP: 07/13/19 06:48 07/13/19 06:48 PT/INR, D-dimer PT 9.9 sec (9.0-12.0) 07/13/19 06:48 INR 0.9 (<1.2) 07/13/19 06:48 D-Dimer 2.81 mg/L FEU (<0.60) H 07/12/19 18:05 Abnormal lab findings: Abnormal Labs 07/12/19 07/12/19 07/12/19 18:05 18:05 18:05 RBC MCV 103.8 H Plt Count APTT 21.7 L D-Dimer 2.81 H Sodium 133 L Chloride Carbon Dioxide 20 L Glucose 308 H POC Glucose (mg/dL) AST 94 H ALT 141 H Triglycerides Cholesterol 07/13/19 07/13/19 07/13/19 00:01 04:48 06:48 RBC 3.89 L MCV 104.4 H Plt Count 143 L APTT 93.8 H D-Dimer Sodium Chloride Carbon Dioxide Glucose POC Glucose (mg/dL) 155 H AST ALT Triglycerides Cholesterol 07/13/19 07/13/19 07/13/19 06:48 06:48 06:48 RBC MCV Plt Count APTT 51.0 H D-Dimer Sodium Chloride 110 H Carbon Dioxide 19 L Glucose 179 H POC Glucose (mg/dL) AST ALT Triglycerides 591 H Cholesterol 246 H - Diagnostic Findings Additional studies: Echocardiogram noted to be normal. Assessment and Plan Assessment: Impression: Subacute pulmonary embolism without any active pulmonary symptoms whatsoever, this could even be chronic. The finding was noted incidentally. History of metastatic melanoma, being followed at the [facility]. Type 2 diabetes. Benign essential hypertension. Hypothyroidism. Recommendation: Patient could be placed on oral anticoagulation therapy, and discharge home. Patient was advised to follow-up with his oncologist and his primary care physician in the next few days. Cleared from my perspective for discharge planning, discussed his condition with the admitting physician P Time with Patient: Greater than 30
--- NOTE | 2019-07-13 19:37 | P.HPIM ---
History of Present Illness H&P Date: 07/13/19 Chief Complaint: PE History of presenting complaint: This is a pleasant 59-year-old patient of Dr. jacobs. Chronic stable medical conditions include diabetes, GERD, hypertension, hypothyroid. Patient was diagnosed with metastatic melanoma with 3 years ago. Did receive radiation treatment and currently on immunotherapy keytruda. Because of diarrhea and been held about a month ago. Patient being followed at [facility] with . Patient was sent to CAT scan done yesterday. Was incidentally found to have pulmonary embolism. Denies any cough or shortness of breath. Just feels tired and rundown. Patient is put on IV heparin admitted for the s freddy. No hemoptysis. Review of systems: GEN.: Tired EYES: None HEENT: None NECK: None RESPIRATORY: Some baseline shortness of breath CARDIOVASCULAR: None GASTROINTESTINAL: None GENITOURINARY: None MUSCULOSKELETAL: None LYMPHATICS: None HEMATOLOGICAL: None PSYCHIATRY: None NEUROLOGICAL: None Past medical history to include: Diabetes, GERD, hypertension, hypothyroid, metastatic melanoma status post radiation treatment and immunotherapy. Hairy cell leukemia. Social history: Does not drink alcohol. Smoked for about 46 years about a pack a day stopped 2 months ago. Lives alone. Used to work as a machinist class b. Physical examination: VITAL SIGNS: 98.4, 94, 18, blood pressure 158/76, 97% on room air-upon presentation] GENERAL: BMI 29.1, sitting up, comfortable. EYES: Pupils equal. Conjunctiva normal. HEENT: External appearance of nose and ears normal, oral cavity grossly normal. NECK: JVD not raised; masses not palpable. HEART: First and second heart sounds are normal; no edema. LUNGS: Respiratory rate normal; clear to auscultation. ABDOMEN: Soft, nontender, liver spleen not palpable, no masses palpable. PSYCH: Alert and oriented x3; mood and affect normal. NEUROLOGICAL: Cranial nerves grossly intact; no facial asymmetry, power and sensation grossly intact. LYMPHATICS: No lymph nodes palpable in the axilla and neck INVESTIGATIONS, reviewed in the clinical context: White count 8 hemoglobin 15.2 platelets 203 potassium 5 creatinine 0.91 Troponin I 3 negative triglycerides 521 EKG tracing personally reviewed by me-normal sinus rhythm with some PVCs 2-D echo shows EF 55-60%, moderate LVH Assessment: -Incidental finding of pulmonary embolism, duration unknown, relatively asymptomatic -Hypertensive heart disease -Diabetes mellitus type 2 on oral hypoglycemic. -GERD -Hypothyroid - metastatic melanoma status post radiation treatment and immunotherapy held ab out a month ago secondary to diarrhea -IV heparin monitoring Plan: Patient started and IV heparin the ER. Home medications resumed. Accu-Cheks will be followed. Patient is relatively asymptomatic. We'll switch the patient over to Xarelto. Encouraged to ambulate. It remains asymptomatic can be discharged. Follow-up CBC and follow-up with his oncologist next 3-4 days Past Medical History Past Medical History: Cancer, Diabetes Mellitus, GERD/Reflux, Hypertension, Thyroid Disorder Additional Past Medical History / Comment(s): per pt dx 3-2016 w/ melanoma(rt upper chest ) had sx to remove cancer along with multiple lymph nodes rt axilla also had 20 radiation tx and is taking keytruda. pt further stated has mets to lung and " tiny spot outside the brain" had 1 intense radiation tx for spot on brain approx 6 months ago- other than lung bx-no other sx on lung but taking keytruda. 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 past gerd pt stated he's not taking meds for it any more. age 10 broke rt wrist-had it reset/casted. History of Any Multi-Drug Resistant Organisms: None Reported Additional Past Surgical History / Comment(s): melanoma /lymph nodes removal. age 10 had benign moles removed. Past Anesthesia/Blood Transfusion Reactions: No Reported Reaction Additional Past Anesthesia/Blood Transfusion Reaction / Comment(s): has had blood transfusions-no reaction Past Psychological History: No Psychological Hx Reported Smoking Status: Former smoker Past Alcohol Use History: None Reported Additional Past Alcohol Use History / Comment(s): started smoking at age 13 smokes 5-10 cig per day. Past Drug Use History: None Reported - Past Family History Mother Family Medical History: Dementia, Deep Vein Thrombosis (DVT), Hypertension Additional Family Medical History / Comment(s): from complications form alzheimers Father Family Medical History: CVA/TIA, Diabetes Mellitus, Hypertension Additional Family Medical History / Comment(s): hernias, colitis. Medications and Allergies Home Medications Medication Instructions Recorded Confirmed Type Aspirin EC [Ecotrin Low Dose] 81 mg PO DAILY 12/22/17 07/12/19 History Ergocalciferol (Vitamin D2) 50,000 unit PO Q7D 12/22/17 07/12/19 History [Vitamin D2] FLUoxetine HCL 40 mg PO DAILY 12/22/17 07/12/19 History Levothyroxine Sodium [Synthroid] 150 mcg PO DAILY 12/22/17 07/12/19 History Multivitamins, Thera [Multivitamin 1 tab PO DAILY 12/22/17 07/12/19 History (formulary)] Omeprazole 20 mg PO DAILY 12/22/17 07/12/19 History Acetaminophen Tab [Tylenol] 650 mg PO Q6HR PRN tab 12/24/17 07/12/19 Rx Canagliflozin [Invokana] 300 mg PO DAILY 07/12/19 07/12/19 History Dapagliflozin Propanediol [Farxiga] 10 mg PO DIRECTED 07/12/19 07/12/19 History HYDROcodone/APAP 10-325MG [[place] 1 tab PO BID PRN 07/12/19 07/12/19 History 10-325] Metoclopramide [Reglan] 5 mg PO DAILY 07/12/19 07/12/19 History Metoprolol Tartrate [Lopressor] 50 mg PO BID 07/12/19 07/12/19 History predniSONE 5 mg PO BID 07/12/19 07/12/19 History Rivaroxaban [Xarelto Starter Pack] 0 mg PO DIRECTED 30 Days #1 pack 07/13/19 Rx Allergies Allergy/AdvReac Type Severity Reaction Status Date / Time No Known Allergies Allergy Verified 07/12/19 20:33 Physical Exam Vitals: Vital Signs Temp Pulse Pulse Resp BP BP Pulse Ox 07/13/19 08:58 97.8 F 07/13/19 08:00 79 16 143/72 95 07/13/19 03:22 97.6 F 68 18 138/77 97 07/13/19 01:32 98.0 F 63 18 130/75 95 07/12/19 22:32 97.5 F L 72 18 125/84 95 07/12/19 20:48 98.0 F 83 18 131/78 97 07/12/19 19:00 77 19 133/89 98 07/12/19 17:45 98.4 F 94 18 158/76 97 Intake and Output 07/12/19 07/13/19 07/13/19 22:59 06:59 14:59 Intake Total 630 875.927 358 Output Total 300 300 Balance 330 575.927 358 Intake: Intake, IV Titration 390 875.927 Amount Heparin Sod,Pork in 0.45% 115.927 NaCl 25,000 unit In 0.45 % NaCl 1 250ml.bag @ 18 UNITS/KG/HR 15.023 mls/hr IV .[id number] ROSA Rx#: [id number] Sodium Chloride 0.9% 1, 500 000 ml @ 100 mls/hr IV . Q10H ROSA Rx#:[id number] Sodium Chloride 0.9% 1, 390 260 000 ml @ 130 mls/hr IV . [id number] STA Rx#:[id number] Oral 240 358 Output: Urine 300 300 Other: Voiding Method Toilet Urinal Weight 83.461 kg 84.4 kg Results CBC & Chem 7: 07/13/19 06:48 07/13/19 06:48 Labs: Abnormal Lab Results - Last 24 Hours (Table) 07/12/19 07/12/19 07/12/19 Range/Units 18:05 18:05 18:05 RBC (4.30-5.90) m/uL MCV 103.8 H (80.0-100.0) fL Plt Count (150-450) k/uL APTT 21.7 L (22.0-30.0) sec D-Dimer 2.81 H (<0.60) mg/L FEU Sodium 133 L (137-145) mmol/L Chloride (98-107) mmol/L Carbon Dioxide 20 L (22-30) mmol/L Glucose 308 H (74-99) mg/dL POC Glucose (mg/dL) (75-99) mg/dL AST 94 H (17-59) U/L ALT 141 H (4-49) U/L Triglycerides (<150) mg/dL Cholesterol (<200) mg/dL 07/13/19 07/13/19 07/13/19 Range/Units 00:01 04:48 06:48 RBC 3.89 L (4.30-5.90) m/uL MCV 104.4 H (80.0-100.0) fL Plt Count 143 L (150-450) k/uL APTT 93.8 H (22.0-30.0) sec D-Dimer (<0.60) mg/L FEU Sodium (137-145) mmol/L Chloride (98-107) mmol/L Carbon Dioxide (22-30) mmol/L Glucose (74-99) mg/dL POC Glucose (mg/dL) 155 H (75-99) mg/dL AST (17-59) U/L ALT (4-49) U/L Triglycerides (<150) mg/dL Cholesterol (<200) mg/dL 07/13/19 07/13/19 07/13/19 Range/Units 06:48 06:48 06:48 RBC (4.30-5.90) m/uL MCV (80.0-100.0) fL Plt Count (150-450) k/uL APTT 51.0 H (22.0-30.0) sec D-Dimer (<0.60) mg/L FEU Sodium (137-145) mmol/L Chloride 110 H (98-107) mmol/L Carbon Dioxide 19 L (22-30) mmol/L Glucose 179 H (74-99) mg/dL POC Glucose (mg/dL) (75-99) mg/dL AST (17-59) U/L ALT (4-49) U/L Triglycerides 591 H (<150) mg/dL Cholesterol 246 H (<200) mg/dL Thrombosis Risk Factor Assmnt - Choose All That Apply Any of the Below Risk Factors Present?: Yes Each Factor Represents 1 point: Age 41-60 years Other Risk Factors: Yes Each Risk Factor Represents 2 Points: Malignancy Other congenital or acquired thrombophilia - If yes, enter type in comment: No Thrombosis Risk Factor Assessment Total Risk Factor Score: 3 Thrombosis Risk Factor Assessment Level: Moderate Risk
--- NOTE | 2019-07-13 19:41 | P.DS ---
Providers Date of admission: 07/12/19 19:52 Expected date of discharge: 07/13/19 Attending physician: Pierce Barton Consults: 07/12/19 19:51 Consult Physician Routine Consulting Provider: Scott Godfrey Consult Reason/Comments: pe Do you want consulting provider notified?: Yes Consult Physician Urgent Consulting Provider: Garrett Chau Consult Reason/Comments: pe Do you want consulting provider notified?: Yes Primary care physician: Kenyon Pierce [facility] Course: Chief Complaint: PE History of presenting complaint: This is a pleasant 59-year-old patient of Dr. pierce. Chronic stable medical conditions include diabetes, GERD, hypertension, hypothyroid. Patient was diagnosed with metastatic melanoma with 3 years ago. Did receive radiation treatment and currently on immunotherapy keytruda. Because of diarrhea and been held about a month ago. Patient being followed at [facility] with . Patient was sent to CAT scan done yesterday. Was incidentally found to have pulmonary embolism. Denies any cough or shortness of breath. Just feels tired and rundown. Patient is put on IV heparin admitted for the same. No hemoptysis. Admitted with pulmonary embolism. Started on IV heparin. Switched over to Xarelto. He remained relatively asymptomatic Consultation: Dr. VC Wisdom from cardiology Dr. San from pulmonary Physical examination: VITAL SIGNS: 96.3, 82, 18, blood pressure 143/70's 2, 97% on room air GENERAL: Sitting up, comfortable. EYES: Pupils equal. Conjunctiva normal. HEENT: External appearance of nose and ears normal, oral cavity grossly normal. NECK: JVD not raised; masses not palpable. HEART: First and second heart sounds are normal; no edema. LUNGS: Respiratory rate normal; clear to auscultation. ABDOMEN: Soft, nontender, liver spleen not palpable, no masses palpable. PSYCH: Alert and oriented x3; mood and affect normal. INVESTIGATIONS, reviewed in the clinical context: White count 8 hemoglobin 15.2 platelets 203 potassium 5 creatinine 0.91 Troponin I 3 negative triglycerides 521 EKG tracing personally reviewed by me-normal sinus rhythm with some PVCs 2-D echo shows EF 55-60%, moderate LVH Assessment: -Incidental finding of pulmonary embolism, duration unknown, relatively asymptomatic, possibly acute -Hypertensive heart disease -Diabetes mellitus type 2 on oral hypoglycemic. -GERD -Hypothyroid - metastatic melanoma status post radiation treatment and immunotherapy held about a month ago secondary to diarrhea -IV heparin monitoring Disposition: Home Patient Condition at Discharge: Stable Plan - Discharge Summary Discharge Rx Participant: No New Discharge Prescriptions: New Rivaroxaban [Xarelto Starter Pack] 0 mg PO DIRECTED 30 Days #1 pack Continue FLUoxetine HCL 40 mg PO DAILY Omeprazole 20 mg PO DAILY Ergocalciferol (Vitamin D2) [Vitamin D2] 50,000 unit PO Q7D Multivitamins, Thera [Multivitamin (formulary)] 1 tab PO DAILY Levothyroxine Sodium [Synthroid] 150 mcg PO DAILY Aspirin EC [Ecotrin Low Dose] 81 mg PO DAILY Acetaminophen Tab [Tylenol] 650 mg PO Q6HR PRN tab PRN Reason: Mild Pain Or Fever > 100.5 Canagliflozin [Invokana] 300 mg PO DAILY Dapagliflozin Propanediol [Farxiga] 10 mg PO DIRECTED HYDROcodone/APAP 10-325MG [[place] 10-325] 1 tab PO BID PRN PRN Reason: Pain Metoclopramide [Reglan] 5 mg PO DAILY Metoprolol Tartrate [Lopressor] 50 mg PO BID predniSONE 5 mg PO BID Discharge Medication List Aspirin EC [Ecotrin Low Dose] 81 mg PO DAILY 12/22/17 [History] Ergocalciferol (Vitamin D2) [Vitamin D2] 50,000 unit PO Q7D 12/22/17 [History] FLUoxetine HCL 40 mg PO DAILY 12/22/17 [History] Levothyroxine Sodium [Synthroid] 150 mcg PO DAILY 12/22/17 [History] Multivitamins, Thera [Multivitamin (formulary)] 1 tab PO DAILY 12/22/17 [History] Omeprazole 20 mg PO DAILY 12/22/17 [History] Acetaminophen Tab [Tylenol] 650 mg PO Q6HR PRN tab 12/24/17 [Rx] Canagliflozin [Invokana] 300 mg PO DAILY 07/12/19 [History] Dapagliflozin Propanediol [Farxiga] 10 mg PO DIRECTED 07/12/19 [History] HYDROcodone/APAP 10-325MG [[place] 10-325] 1 tab PO BID PRN 07/12/19 [History] Metoclopramide [Reglan] 5 mg PO DAILY 07/12/19 [History] Metoprolol Tartrate [Lopressor] 50 mg PO BID 07/12/19 [History] predniSONE 5 mg PO BID 07/12/19 [History] Rivaroxaban [Xarelto Starter Pack] 0 mg PO DIRECTED 30 Days #1 pack 07/13/19 [Rx] Follow up Appointment(s)/Referral(s): oncologistdr [Other] - 1 Week Kenyon Pierce MD [Primary Care Provider] - 1 Week Patient Instructions/Handouts: Pulmonary Embolism (DC) Activity/Diet/Wound Care/Special Instructions: cbc- 3 days Discharge Disposition: HOME SELF-CARE
== END 2019-07-13 19:51 | disposition home or self-care (01) ==
LOC: EC 17:44 → INTOOBSV 19:52 → 3SCARD 19:52 → UNDODISIN 07-13 13:26
PROVIDERS: ADMIT Hospitalist; ATTEND Hospitalist
DX: I26.99 Other pulmonary embolism without acute cor pulmonale (principal); I11.9 Hypertensive heart disease without heart failure; E11.9 Type 2 diabetes mellitus without complications; K21.9 Gastro-esophageal reflux disease without esophagitis; E03.9 Hypothyroidism, unspecified; C78.00 Secondary malignant neoplasm of unspecified lung; C91.40 Hairy cell leukemia not having achieved remission; R74.8 Abnormal levels of other serum enzymes; F41.9 Anxiety disorder, unspecified; I25.10 Atherosclerotic heart disease of native coronary artery without angina pectoris; E66.9 Obesity, unspecified; Z68.21 Body mass index [BMI] 21.0-21.9, adult; Z79.82 Long term (current) use of aspirin; Z79.899 Other long term (current) drug therapy; Z79.891 Long term (current) use of opiate analgesic; Z79.890 Hormone replacement therapy; Z79.84 Long term (current) use of oral hypoglycemic drugs; Z92.3 Personal history of irradiation; Z87.891 Personal history of nicotine dependence; Z85.820 Personal history of malignant melanoma of skin; Z82.49 Family history of ischemic heart disease and other diseases of the circulatory system; Z82.3 Family history of stroke; Z83.3 Family history of diabetes mellitus; Z83.79 Family history of other diseases of the digestive system; Z81.8 Family history of other mental and behavioral disorders; Z82.0 Family history of epilepsy and other diseases of the nervous system
CPT/HCPCS: 36415; 80048; 80053; 80061; 83735; 83880; 84484; 85025; 85379; 85610; 85730; 93005; 93306; 96365; 96366; 96376; 99291

== ENCOUNTER → 2019-08-13 | Outpatient (CLI) | payer MEDICARE ==
[2019-08-13 09:00] LABS: Basophils % (A) 0 %; Eosinophils # (A) 0.3 k/uL (0-0.7); Eosinophils % (A) 4 %; HCT 46.2 % (39.0-53.0); HGB 14.7 gm/dL (13.0-17.5); Lymphocytes # (A) 1.2 k/uL (1.0-4.8); Lymphocytes % (A) 16 %; MCH 33.1 pg (25.0-35.0); MCHC 31.8 g/dL (31.0-37.0); Macrocytosis Slight; Mean Platelet Volume 8.8; Monocytes # (A) 0.6 k/uL (0-1.0); Monocytes % (A) 8 %; Neutrophils # (A) 5.3 k/uL (1.3-7.7); Neutrophils % (A) 70 %; Platelet Count 179 k/uL (150-450); RBC 4.45 m/uL (4.30-5.90); RDW 12.6 % (11.5-15.5); WBC 7.6 k/uL (3.8-10.6)
[2019-08-13 15:36] LABS: African American GFR (CKD) 93.7 (60.0-200.0); Albumin 4.3 g/dL (3.80-4.90); Albumin/Globulin Ratio 1.95 (1.60-3.17); Anion Gap 13.2 mmol/L (4.00-12.00); Calcium 9.5 mg/dL (8.7-10.3); Carbon Dioxide 27.8 mmol/L (21.6-31.8); Globulin 2.2 g/dL (1.6-3.3); Non-African American GFR(CKD) 80.9 (60.0-200.0); Potassium 4.4 mmol/L (3.5-5.5); Total Bilirubin 0.5 mg/dL (0.2-1.2); Total Protein 6.5 g/dL (6.2-8.2)
== END | disposition home or self-care (01) ==
LOC: LABWHC1 08:26
PROVIDERS: ATTEND Internal Medicine Medical Oncology
DX: C79.9 Secondary malignant neoplasm of unspecified site (principal)
CPT/HCPCS: 36415; 80053; 83615; 85025

== ENCOUNTER → 2020-04-13 | Outpatient (CLI) | payer MEDICARE, OTHER | END | disposition home or self-care (01) | LOC: LABWHC1 07:05 | PROVIDERS: ATTEND Internal Medicine Endocrinology, Diabetes & Metabolism | DX: C79.9 Secondary malignant neoplasm of unspecified site (principal); Z92.89 Personal history of other medical treatment | CPT/HCPCS: 36415; 82024 ==

== ENCOUNTER → 2020-05-07 | Outpatient (CLI) | payer MEDICARE, OTHER ==
[2020-05-07 15:30] LABS: T4, Free (Free Thyroxine) 1.1 ng/dL (0.80-1.80)
== END | disposition home or self-care (01) ==
LOC: LABWHC1 10:17
PROVIDERS: ATTEND Internal Medicine Endocrinology, Diabetes & Metabolism
DX: E03.9 Hypothyroidism, unspecified (principal); C79.9 Secondary malignant neoplasm of unspecified site; Z92.89 Personal history of other medical treatment
CPT/HCPCS: 36415; 82024; 82533; 84439; 84443

== ENCOUNTER 2020-12-29 13:34 | Observation (INO) | payer MEDICARE ==
[2020-12-29] MEDS ORDERED: SODIUM CHLORIDE 0.9% 500 ML 500 ML IV STA (13:58)
--- NOTE | 2020-12-29 14:17 | ED ---
General Adult HPI - General Chief complaint: Weakness Stated complaint: poss bladder infection Time Seen by Provider: 12/29/20 13:40 Source: patient, RN notes reviewed, old records reviewed Mode of arrival: EMS Limitations: no limitations - History of Present Illness Initial comments: This is a 60-year-old male who has a past medical history significant for metastatic multiple myeloma as well as herself leukemia. Patient also states he has high low dysplastic syndrome. Patient comes in today because for the last 2 weeks she's been extremely fatigued and short of breath he states he can't do anything. Patient states he had no MRI of his brain about a month ago and he was completely clear of melanoma. Patient denies any fever chills. Patient denies any chest pain or palpitations. Patient denies any abdominal pain patient denies nausea vomiting or diarrhea. Patient denies any dysuria hematuria or urinary frequency. - Related Data Home Medications Medication Instructions Recorded Confirmed FLUoxetine HCL 40 mg PO DAILY 12/22/17 12/29/20 Levothyroxine Sodium [Synthroid] 150 mcg PO DAILY 12/22/17 12/29/20 Multivitamins, Thera [Multivitamin 1 tab PO DAILY 12/22/17 12/29/20 (formulary)] Omeprazole 20 mg PO DAILY 12/22/17 12/29/20 Dapagliflozin Propanediol [Farxiga] 10 mg PO DAILY 07/12/19 12/29/20 HYDROcodone/APAP 10-325MG [[place] 1 tab PO BID PRN 07/12/19 12/29/20 10-325] Metoprolol Tartrate [Lopressor] 50 mg PO DAILY 07/12/19 12/29/20 Binimetinib [Mektovi] 45 mg PO Q12H 12/29/20 12/29/20 Cholecalciferol (Vitamin D3) 125 mcg PO DAILY 12/29/20 12/29/20 [Vitamin D3 (125 MCG = 5,000 IU)] Encorafenib [Braftovi] 450 mg PO DAILY 12/29/20 12/29/20 Glimepiride [Amaryl] 2 mg PO DAILY 12/29/20 12/29/20 Ixekizumab [Taltz Autoinjector] 80 mg SQ Q28D 12/29/20 12/29/20 Rivaroxaban [Xarelto] 20 mg PO DAILY 12/29/20 12/29/20 Allergies Allergy/AdvReac Type Severity Reaction Status Date / Time No Known Allergies Allergy Verified 12/29/20 15:23 Review of Systems ROS Statement: Those systems with pertinent positive or pertinent negative responses have been documented in the HPI. ROS Other: All systems not noted in ROS Statement are negative. Past Medical History Past Medical History: Cancer, Diabetes Mellitus, GERD/Reflux, Hypertension, Thyroid Disorder Additional Past Medical History / Comment(s): per pt dx 3-2016 w/ melanoma(rt upper chest ) had sx to remove cancer along with multiple lymph nodes rt axilla also had 20 radiation tx and is taking keytruda. pt further stated has mets to lung and " tiny spot outside the brain" had 1 intense radiation tx for spot on brain approx 6 months ago- other than lung bx-no other sx on lung but taking keytruda. 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 past gerd pt stated he's not taking meds for it any more. age 10 broke rt wrist-had it reset/casted. History of Any Multi-Drug Resistant Organisms: None Reported Additional Past Surgical History / Comment(s): melanoma /lymph nodes removal. a ge 10 had benign moles removed. Past Anesthesia/Blood Transfusion Reactions: No Reported Reaction Additional Past Anesthesia/Blood Transfusion Reaction / Comment(s): has had blood transfusions-no reaction Past Psychological History: No Psychological Hx Reported Smoking Status: Current every day smoker Past Alcohol Use History: None Reported Past Drug Use History: Marijuana - Past Family History Mother Family Medical History: Dementia, Deep Vein Thrombosis (DVT), Hypertension Additional Family Medical History / Comment(s): from complications form alzheimers Father Family Medical History: CVA/TIA, Diabetes Mellitus, Hypertension Additional Family Medical History / Comment(s): hernias, colitis. General Exam - General Exam Comments Initial Comments: GENERAL: Patient is well-developed and well-nourished. Patient is nontoxic and well- hydrated and is in mild distress. ENT: Neck is soft and supple. No significant lymphadenopathy is noted. Oropharynx is clear. Moist mucous membranes. Neck has full range of motion without elicit ing any pain. EYES: The sclera were anicteric and conjunctiva were pink and moist. Extraocular m ovements were intact and pupils were equal round and reactive to light. Eyelids were unremarkable. PULMONARY: Unlabored respirations. Good breath sounds bilaterally. No audible rales rhonchi or wheezing was noted. CARDIOVASCULAR: Patient is mildly tachycardic at 105 beats a minute. ABDOMEN: Soft and nontender with normal bowel sounds. SKIN: Skin is clear with no lesions or rashes and otherwise unremarkable. NEUROLOGIC: Patient is alert and oriented x3. Cranial nerves II through XII are grossly intact. Motor and sensory are also intact. Normal speech, volume and content. Symmetrical smile. Cerebellar exam grossly intact. MUSCULOSKELETAL: Normal extremities with adequate strength and full range of motion. No lower extremity swelling or edema. No calf tenderness. LYMPHATICS: No significant lymphadenopathy is noted PSYCHIATRIC: Normal psychiatric evaluation. Limitations: no limitations Course Vital Signs 12/29/20 12/29/20 12/29/20 13:40 14:57 17:13 Temperature 98.1 F Pulse Rate 108 H 93 101 H Respiratory 20 20 20 Rate Blood Pressure 104/63 120/59 137/74 O2 Sat by Pulse 98 97 98 Oximetry Medical Decision Making - Medical Decision Making EKG shows sinus tachycardia at 104 bpm AL interval 150 QRS is 84 QT interval 42 QTC is 528. Patient's EKG shows no ST segment elevation or depression. Chest x-ray shows no acute abnormality. I spoke with his doctor from the [facility] doctor Andrei and she wanted the patient to be admitted she also thought it was a good idea to prophylactically given antibiotics secondary to the fact he has a white count and he is immunocompromised. I spoke with Dr. Guadalupe he agreed to admit the patient admitted the patient wrote admitting orders. - Lab Data Result diagrams: 12/29/20 14:06 12/29/20 14:06 Lab Results 12/29/20 12/29/20 12/29/20 Range/Units 14:06 14:06 14:06 WBC 12.4 H (3.8-10.6) k/uL RBC 2.66 L (4.30-5.90) m/uL Hgb 8.1 L (13.0-17.5) gm/dL Hct 24.3 L (39.0-53.0) % MCV 91.1 (80.0-100.0) fL MCH 30.3 (25.0-35.0) pg MCHC 33.3 (31.0-37.0) g/dL RDW 19.9 H (11.5-15.5) % Plt Count 112 L (150-450) k/uL MPV 9.5 Neutrophils % (Manual) 40 % Band Neuts % (Manual) 4 % Lymphocytes % (Manual) 11 % Monocytes % (Manual) 37 % Metamyelocytes % 3 % Myelocytes % 3 % Blast Cells % 4 H* % Neutrophils # (Manual) 5.40 (1.3-7.7) k/uL Lymphocytes # (Manual) 1.36 (1.0-4.8) k/uL Monocytes # (Manual) 4.59 H (0-1.0) k/uL Metamyelocytes # (Man) 0.37 H (0) k/uL Myelocytes # (Manual) 0.37 H (0) k/uL Blast Cells # (Man) 0.50 H (0) k/uL Nucleated RBCs 80 H (0-0) /100 WBC Hypochromasia Slight Poikilocytosis Moderate Anisocytosis Slight PT 10.7 (9.0-12.0) sec INR 1.0 (<1.2) APTT 22.0 (22.0-30.0) sec D-Dimer (<0.60) mg/L FEU Sodium (137-145) mmol/L Potassium (3.5-5.1) mmol/L Chloride (98-107) mmol/L Carbon Dioxide (22-30) mmol/L Anion Gap mmol/L BUN (9-20) mg/dL Creatinine (0.66-1.25) mg/dL Est GFR (CKD-EPI)AfAm (>60 ml/min/1.73 sqM) Est GFR (CKD-EPI)NonAf (>60 ml/min/1.73 sqM) Glucose (74-99) mg/dL Lactic Ac Sepsis Rflx Plasma Lactic Acid Tom (0.7-2.0) mmol/L Calcium (8.4-10.2) mg/dL Magnesium (1.6-2.3) mg/dL Total Bilirubin (0.2-1.3) mg/dL AST (17-59) U/L ALT (4-49) U/L Alkaline Phosphatase (38-126) U/L Troponin I (0.000-0.034) ng/mL Total Protein (6.3-8.2) g/dL Albumin (3.5-5.0) g/dL Urine Color Yellow Urine Appearance Clear (Clear) Urine pH 5.5 (5.0-8.0) Ur Specific Kramer 1.013 (1.001-1.035) Urine Protein 1+ H (Negative) Urine Glucose (UA) 2+ H (Negative) Urine Ketones Negative (Negative) Urine Blood Negative (Negative) Urine Nitrite Negative (Negative) Urine Bilirubin Negative (Negative) Urine Urobilinogen <2.0 (<2.0) mg/dL Ur Leukocyte Esterase Negative (Negative) Urine RBC <1 (0-5) /hpf Urine WBC 1 (0-5) /hpf Hyaline Casts 1 (0-2) /lpf Urine Mucus Rare H (None) /hpf Coronavirus (PCR) (Not Detectd) 12/29/20 12/29/20 12/29/20 Range/Units 14:06 14:06 14:06 WBC (3.8-10.6) k/uL RBC (4.30-5.90) m/uL Hgb (13.0-17.5) gm/dL Hct (39.0-53.0) % MCV (80.0-100.0) fL MCH (25.0-35.0) pg MCHC (31.0-37.0) g/dL RDW (11.5-15.5) % Plt Count (150-450) k/uL MPV Neutrophils % (Manual) % Band Neuts % (Manual) % Lymphocytes % (Manual) % Monocytes % (Manual) % Metamyelocytes % % Myelocytes % % Blast Cells % % Neutrophils # (Manual) (1.3-7.7) k/uL Lymphocytes # (Manual) (1.0-4.8) k/uL Monocytes # (Manual) (0-1.0) k/uL Metamyelocytes # (Man) (0) k/uL Myelocytes # (Manual) (0) k/uL Blast Cells # (Man) (0) k/uL Nucleated RBCs (0-0) /100 WBC Hypochromasia Poikilocytosis Anisocytosis PT (9.0-12.0) sec INR (<1.2) APTT (22.0-30.0) sec D-Dimer (<0.60) mg/L FEU Sodium 133 L (137-145) mmol/L Potassium 3.3 L (3.5-5.1) mmol/L Chloride 104 (98-107) mmol/L Carbon Dioxide 22 (22-30) mmol/L Anion Gap 7 mmol/L BUN 17 (9-20) mg/dL Creatinine 0.81 (0.66-1.25) mg/dL Est GFR (CKD-EPI)AfAm >90 (>60 ml/min/1.73 sqM) Est GFR (CKD-EPI)NonAf >90 (>60 ml/min/1.73 sqM) Glucose 160 H (74-99) mg/dL Lactic Ac Sepsis Rflx Plasma Lactic Acid Tom 2.4 H* (0.7-2.0) mmol/L Calcium 8.2 L (8.4-10.2) mg/dL Magnesium 2.0 (1.6-2.3) mg/dL Total Bilirubin 1.1 (0.2-1.3) mg/dL AST 46 (17-59) U/L ALT 16 (4-49) U/L Alkaline Phosphatase 187 H (38-126) U/L Troponin I <0.012 (0.000-0.034) ng/mL Total Protein 6.0 L (6.3-8.2) g/dL Albumin 3.0 L (3.5-5.0) g/dL Urine Color Urine Appearance (Clear) Urine pH (5.0-8.0) Ur Specific Kramer (1.001-1.035) Urine Protein (Negative) Urine Glucose (UA) (Negative) Urine Ketones (Negative) Urine Blood (Negative) Urine Nitrite (Negative) Urine Bilirubin (Negative) Urine Urobilinogen (<2.0) mg/dL Ur Leukocyte Esterase (Negative) Urine RBC (0-5) /hpf Urine WBC (0-5) /hpf Hyaline Casts (0-2) /lpf Urine Mucus (None) /hpf Coronavirus (PCR) (Not Detectd) 12/29/20 12/29/20 12/29/20 Range/Units 14:06 14:53 17:28 WBC (3.8-10.6) k/uL RBC (4.30-5.90) m/uL Hgb (13.0-17.5) gm/dL Hct (39.0-53.0) % MCV (80.0-100.0) fL MCH (25.0-35.0) pg MCHC (31.0-37.0) g/dL RDW (11.5-15.5) % Plt Count (150-450) k/uL MPV Neutrophils % (Manual) % Band Neuts % (Manual) % Lymphocytes % (Manual) % Monocytes % (Manual) % Metamyelocytes % % Myelocytes % % Blast Cells % % Neutrophils # (Manual) (1.3-7.7) k/uL Lymphocytes # (Manual) (1.0-4.8) k/uL Monocytes # (Manual) (0-1.0) k/uL Metamyelocytes # (Man) (0) k/uL Myelocytes # (Manual) (0) k/uL Blast Cells # (Man) (0) k/uL Nucleated RBCs (0-0) /100 WBC Hypochromasia Poikilocytosis Anisocytosis PT (9.0-12.0) sec INR (<1.2) APTT (22.0-30.0) sec D-Dimer 6.46 H (<0.60) mg/L FEU Sodium (137-145) mmol/L Potassium (3.5-5.1) mmol/L Chloride (98-107) mmol/L Carbon Dioxide (22-30) mmol/L Anion Gap mmol/L BUN (9-20) mg/dL Creatinine (0.66-1.25) mg/dL Est GFR (CKD-EPI)AfAm (>60 ml/min/1.73 sqM) Est GFR (CKD-EPI)NonAf (>60 ml/min/1.73 sqM) Glucose (74-99) mg/dL Lactic Ac Sepsis Rflx Y Plasma Lactic Acid Tom (0.7-2.0) mmol/L Calcium (8.4-10.2) mg/dL Magnesium (1.6-2.3) mg/dL Total Bilirubin (0.2-1.3) mg/dL AST (17-59) U/L ALT (4-49) U/L Alkaline Phosphatase (38-126) U/L Troponin I (0.000-0.034) ng/mL Total Protein (6.3-8.2) g/dL Albumin (3.5-5.0) g/dL Urine Color Urine Appearance (Clear) Urine pH (5.0-8.0) Ur Specific Kramer (1.001-1.035) Urine Protein (Negative) Urine Glucose (UA) (Negative) Urine Ketones (Negative) Urine Blood (Negative) Urine Nitrite (Negative) Urine Bilirubin (Negative) Urine Urobilinogen (<2.0) mg/dL Ur Leukocyte Esterase (Negative) Urine RBC (0-5) /hpf Urine WBC (0-5) /hpf Hyaline Casts (0-2) /lpf Urine Mucus (None) /hpf Coronavirus (PCR) Not Detected (Not Detectd) Disposition Clinical Impression: Generalized weakness, Myelodysplastic disease, Anemia, Thrombocytopenia Disposition: ADMITTED IP TO THIS HOSP Referrals: Kenyon Pierce MD [Primary Care Provider] - 1-2 days Time of Disposition: 18:04
[2020-12-29 14:41] LABS: ALT 16 U/L (4-49); AST 46 U/L (17-59); African American GFR (CKD) >90 (>60 ml/min/1.73 sqM); Alkaline Phosphatase 187 U/L (38-126); Anion Gap 7 mmol/L; Anisocytosis Slight; Blood Urea Nitrogen 17 mg/dL (9-20); Calcium 8.2 mg/dL (8.4-10.2); Carbon Dioxide 22 mmol/L (22-30); Chloride 104 mmol/L (98-107); Glucose 160 mg/dL (74-99); HCT 24.3 % (39.0-53.0); HGB 8.1 gm/dL (13.0-17.5); Hypochromasia Slight; MCH 30.3 pg (25.0-35.0); MCHC 33.3 g/dL (31.0-37.0); MCV 91.1 fL (80.0-100.0); Mean Platelet Volume 9.5; Non-African American GFR(CKD) >90 (>60 ml/min/1.73 sqM); Platelet Count 112 k/uL (150-450); Poikilocytosis Moderate; Potassium 3.3 mmol/L (3.5-5.1); RBC 2.66 m/uL (4.30-5.90); RDW 19.9 % (11.5-15.5); Sodium 133 mmol/L (137-145); Total Bilirubin 1.1 mg/dL (0.2-1.3)
--- NOTE | 2020-12-29 14:45 | XR ---
EXAMINATION TYPE: XR chest 2V DATE OF EXAM: 12/29/2020 COMPARISON: NONE TECHNIQUE: PA and lateral views submitted. HISTORY: Weakness FINDINGS: The lungs are clear and there is no pneumothorax, pleural effusion, or focal pneumonia. Hypertrophi c and degenerative change of the spine. Arthropathy of the shoulders. No overt failure. Biapical pleu ral thickening. IMPRESSION: 1. No acute process.
[2020-12-29 14:53] LABS: Prothrombin Time 10.7 sec (9.0-12.0)
[2020-12-29 15:24] LABS: Band Neutrophils % 4 %; Metamyelocytes % 3 %; Myelocytes % 3 %; Neutrophils % (M) 40 %; Nucleated Red Blood Cells 80 /100 WBC (0-0); Total Cells Counted 200
[2020-12-29 15:25] LABS: Lymphocytes # (M) 1.36 k/uL (1.0-4.8); Metamyelocytes # (M) 0.37 k/uL (0); Monocytes # (M) 4.59 k/uL (0-1.0); Myelocytes # (M) 0.37 k/uL (0); WBC 12.4 k/uL (3.8-10.6)
[2020-12-29 16:29] LABS: Appearance,Urine Clear (Clear); Bilirubin,Urine Negative (Negative); Blood,Urine Negative (Negative); Color,Urine Yellow; Glucose,Urine (UA) 2+ (Negative); Hyaline Casts,Urine 1 /lpf (0-2); Ketones,Urine Negative (Negative); Leukocyte Esterase,Urine Negative (Negative); Mucus,Urine Rare /hpf; Nitrite,Urine Negative (Negative); PH, Urine 5.5 (5.0-8.0); Protein,Urine 1+ (Negative); RBC,Urine <1 /hpf (0-5); Specific Gravity,Urine 1.013 (1.001-1.035); Urobilinogen,Urine <2.0 mg/dL (<2.0); WBC,Urine 1 /hpf (0-5)
[2020-12-29] MEDS ORDERED: cefTRIAXone IN SWFI 1,000 MG/10 ML SYRINGE IVP STA (17:45)
[2020-12-29] MEDS ORDERED: LORazepam 2 MG/ML INJ IV STA (17:59)
[2020-12-29] MEDS ORDERED: SODIUM CHLORIDE 0.9% 1,000 ML IV ONE (18:14)
[2020-12-29] MEDS ORDERED: LORazepam 2 MG/ML INJ IV PRN (18:16)
[2020-12-29] MEDS ORDERED: HYDROcodone/APAP 10-325MG 1 EACH TAB PO PRN (23:07)
[2020-12-29] MEDS ORDERED: TEMAZEPAM 7.5 MG CAP PO PRN (23:54)
--- NOTE | 2020-12-29 23:54 | P.HPIM ---
History of Present Illness H&P Date: 12/29/20 Chief Complaint: progressive exertional dyspnea 60 year old male with metastatic melanoma, hairy cell leukemia , and myelodysplastic syndrome on chemo and immunotherapy patient comes in with complaint of 2 weeks progressive exertional dyspnea , his oncologist from [facility] , recommended today , that he comes in for evaluation . patient denies any urinary changes, chest pain or cough, denies any URI symptoms or sick contacts. he does report chronic headache (> 3 months ), MRI of the head was done about 2 weeks ago , showed that his brain is free from melanoma he also reports chronic off/on diarrhea , denies any GI bleeding his main concern is generalized fatigue and progressive exertional dyspnea of 2 weeks duration , now he cant even go to the bathroom at home without getting winded. he denies any orthopnea, or wheezing, denies any leg edema , denies any history of CHF . he does have history of hypertensive heart disease with concentric ventricular hypertrophy June with LVEF 55-60% his last hospitalization was june 2019 , here in our hospital where he was found to have acute PE. since then he has been on xarelto blood work showed , leukocytosis , new anemia of 8.1 , his hemoglobin was 10.1 about 2 weeks ago per his report )and back in July 2019 hemoglobin was normal patient also found to have blast cells and thrombocytopenia lactic acidosis of 2.4 , resolved with IVF hydration with normal saline COVID test negative , CXR unremarkable , UA negative for infection blood cultures taken in the ED, and one dose of rocephine given in the ED Review of Systems Pertinent positives as noted in HPI. All other systems were reviewed and are negative Past Medical History Past Medical History: Cancer, Diabetes Mellitus, GERD/Reflux, Hypertension, Thyroid Disorder Additional Past Medical History / Comment(s): per pt dx 3-2017 w/ melanoma(rt upper chest ) had sx to remove cancer along with multiple lymph nodes rt axilla also had 20 radiation tx and is taking keytruda. pt further stated has mets to lung and " tiny spot outside the brain" had 1 intense radiation tx for spot on brain approx 6 months ago- other than lung bx-no other sx on lung but taking keytruda. 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 past gerd pt stated he's not taking meds for it any more. age 10 broke rt wrist-had it reset/casted. History of Any Multi-Drug Resistant Organisms: None Reported Additional Past Surgical History / Comment(s): melanoma /lymph nodes removal. age 10 had benign moles removed. Past Anesthesia/Blood Transfusion Reactions: No Reported Reaction Additional Past Anesthesia/Blood Transfusion Reaction / Comment(s): has had blood transfusions-no reaction Past Psychological History: No Psychological Hx Reported Smoking Status: Current every day smoker Past Alcohol Use History: None Reported Past Drug Use History: Marijuana - Past Family History Mother Family Medical History: Dementia, Deep Vein Thrombosis (DVT), Hypertension Additional Family Medical History / Comment(s): from complications form alzheimers Father Family Medical History: CVA/TIA, Diabetes Mellitus, Hypertension Additional Family Medical History / Comment(s): hernias, colitis. Medications and Allergies Home Medications Medication Instructions Recorded Confirmed Type FLUoxetine HCL 40 mg PO DAILY 12/22/17 12/29/20 History Levothyroxine Sodium [Synthroid] 150 mcg PO DAILY 12/22/17 12/29/20 History Multivitamins, Thera [Multivitamin 1 tab PO DAILY 12/22/17 12/29/20 History (formulary)] Omeprazole 20 mg PO DAILY 12/22/17 12/29/20 History Dapagliflozin Propanediol [Farxiga] 10 mg PO DAILY 07/12/19 12/29/20 History HYDROcodone/APAP 10-325MG [[place] 1 tab PO BID PRN 07/12/19 12/29/20 History 10-325] Metoprolol Tartrate [Lopressor] 50 mg PO DAILY 07/12/19 12/29/20 History Binimetinib [Mektovi] 45 mg PO Q12H 12/29/20 12/29/20 History Cholecalciferol (Vitamin D3) 125 mcg PO DAILY 12/29/20 12/29/20 History [Vitamin D3 (125 MCG = 5,000 IU)] Encorafenib [Braftovi] 450 mg PO DAILY 12/29/20 12/29/20 History Glimepiride [Amaryl] 2 mg PO DAILY 12/29/20 12/29/20 History Ixekizumab [Taltz Autoinjector] 80 mg SQ Q28D 12/29/20 12/29/20 History Rivaroxaban [Xarelto] 20 mg PO DAILY 12/29/20 12/29/20 History Allergies Allergy/AdvReac Type Severity Reaction Status Date / Time No Known Allergies Allergy Verified 12/29/20 15:23 Physical Exam Vitals: Vital Signs Temp Pulse Resp BP Pulse Ox 12/29/20 20:30 97.9 F 107 H 20 122/83 95 12/29/20 17:13 101 H 20 137/74 98 12/29/20 14:57 93 20 120/59 97 12/29/20 13:40 98.1 F 108 H 20 104/63 98 Intake and Output 12/29/20 12/29/20 12/30/20 14:59 22:59 06:59 Other: Weight 78.471 kg Constitutional: No acute distress, conversant, pleasant Eyes: Anicteric sclerae, moist conjunctiva, Pupils equal round reactive to light ENMT: NC/AT Oropharynx clear, no erythema, or exudates Neck: Supple, FROM, no masses, or JVD No carotid bruits No thyromegaly Lungs: Clear to auscultation Clear to percussion Normal respiratory effort, no accessory muscle use Cardiovascular: Heart regular in rate and rhythm, No murmurs, gallops, or rubs No peripheral edema Abdominal: Soft Nontender, no guarding, rebound or rigidity Abdomen moving with respiration Normoactive bowel sounds No hepatomegaly, No splenomegaly No palpable mass No abdominal wall hernia noted Skin: Normal temperature, tone, texture, turgor No induration No subcutaneous nodules No rash, lesions No ulcers Extremities: No digital cyanosis No clubbing Pedal pulses intact and symmetrical Radial pulses intact and symmetrical No calf tenderness Psychiatric: Alert and oriented to person, place and time Appropriate affect fair judgement Neuro Muscles Strength 4/5 in all 4 extremities Sensation to light touch grossly present throughout Cranial nerves II-XII grossly intact No focal sensory deficits Lymphatics: no palpable cervical or supraclavicular , or inguinal lymph nodes Results CBC & Chem 7: 12/29/20 14:06 12/29/20 14:06 Labs: Abnormal Lab Results - Last 24 Hours (Table) 12/29/20 12/29/20 12/29/20 Range/Units 14:06 14:06 14:06 WBC 12.4 H (3.8-10.6) k/uL RBC 2.66 L (4.30-5.90) m/uL Hgb 8.1 L (13.0-17.5) gm/dL Hct 24.3 L (39.0-53.0) % RDW 19.9 H (11.5-15.5) % Plt Count 112 L (150-450) k/uL Blast Cells % 4 H* % Monocytes # (Manual) 4.59 H (0-1.0) k/uL Metamyelocytes # (Man) 0.37 H (0) k/uL Myelocytes # (Manual) 0.37 H (0) k/uL Blast Cells # (Man) 0.50 H (0) k/uL Nucleated RBCs 80 H (0-0) /100 WBC D-Dimer (<0.60) mg/L FEU Sodium 133 L (137-145) mmol/L Potassium 3.3 L (3.5-5.1) mmol/L Glucose 160 H (74-99) mg/dL Plasma Lactic Acid Tom (0.7-2.0) mmol/L Calcium 8.2 L (8.4-10.2) mg/dL Alkaline Phosphatase 187 H (38-126) U/L Total Protein 6.0 L (6.3-8.2) g/dL Albumin 3.0 L (3.5-5.0) g/dL Urine Protein 1+ H (Negative) Urine Glucose (UA) 2+ H (Negative) Urine Mucus Rare H (None) /hpf 12/29/20 12/29/20 Range/Units 14:06 17:28 WBC (3.8-10.6) k/uL RBC (4.30-5.90) m/uL Hgb (13.0-17.5) gm/dL Hct (39.0-53.0) % RDW (11.5-15.5) % Plt Count (150-450) k/uL Blast Cells % % Monocytes # (Manual) (0-1.0) k/uL Metamyelocytes # (Man) (0) k/uL Myelocytes # (Manual) (0) k/uL Blast Cells # (Man) (0) k/uL Nucleated RBCs (0-0) /100 WBC D-Dimer 6.46 H (<0.60) mg/L FEU Sodium (137-145) mmol/L Potassium (3.5-5.1) mmol/L Glucose (74-99) mg/dL Plasma Lactic Acid Tom 2.4 H* (0.7-2.0) mmol/L Calcium (8.4-10.2) mg/dL Alkaline Phosphatase (38-126) U/L Total Protein (6.3-8.2) g/dL Albumin (3.5-5.0) g/dL Urine Protein (Negative) Urine Glucose (UA) (Negative) Urine Mucus (None) /hpf Assessment and Plan Assessment: SIRS without source of infection (leukocytosis and tachycardia ) lactic acidosis generalized fatigue with progressive exertional dyspnea hypertensive heart disease elevated D dimer plan IVF hydration with normal saline supportive care UA unremarkable CXR no acute pathology check blood cultures COVID negative patient given one dose rocephin in the ED, continue to monitor off antibiotics check echocardiogram (with hypertensive heart disease now presenting with progressive exertional dyspnea ) follow up labs replace K , and follow up levels elevated d dimer , currently on theraputic dose xarelto , no hypoxemia , no leg swelling or calf tenderness , will continue to monitor continue BP home meds chronic conditions history of PE, on full dose xarelto malignancy ( hairy cell leukemia , metastatic melanoma, and meylodysplastic syndrome ) anemia and thrombocytopenia secondary to above denies any GI bleeding DM on oral hypoglycemic agents , switch to insulin sliding scale while inpatient hypothyroid , resume levothyroxine GERD continue with PPI patient is no code anticipated length of stay <2 midnights anticipated discharge , pending clinical course
[2020-12-29] MEDS ORDERED: POTASSIUM CHLORIDE ER 20 MEQ TAB.ER PO STA (23:55)
[2020-12-30 06:29] LABS: Anisocytosis Slight; HCT 23.5 % (39.0-53.0); HGB 7.7 gm/dL (13.0-17.5); Hypochromasia Slight; MCH 30.2 pg (25.0-35.0); MCV 91.6 fL (80.0-100.0); Mean Platelet Volume 8.8; Poikilocytosis Moderate; RBC 2.56 m/uL (4.30-5.90); RDW 19.7 % (11.5-15.5)
[2020-12-30] MEDS ORDERED: LEVOTHYROXINE 75 MCG TAB PO SCH (06:30)
[2020-12-30 06:48] LABS: Band Neutrophils % 23 %; Metamyelocytes % 4 %; Myelocytes % 4 %; Neutrophils % (M) 36 %; Nucleated Red Blood Cells 118 /100 WBC (0-0); Total Cells Counted 200
[2020-12-30 06:49] LABS: Anisocytosis (M) Present; Blast Cells # (M) 0.38 k/uL (0); Lymphocytes # (M) 1.13 k/uL (1.0-4.8); Metamyelocytes # (M) 0.38 k/uL (0); Monocytes # (M) 1.69 k/uL (0-1.0); Myelocytes # (M) 0.38 k/uL (0); Poikilocytosis (M) Present; Polychromasia Present; WBC 9.4 k/uL (3.8-10.6)
[2020-12-30 06:50] LABS: Platelet Count 98 k/uL (150-450)
[2020-12-30] MEDS ORDERED: PANTOPRAZOLE 40 MG TABLET PO SCH (07:30)
[2020-12-30 07:47] LABS: Glucose,Whole Blood 151 mg/dL (75-99)
[2020-12-30] MEDS: INSULIN ASPART (NovoLOG) 100 UNIT/ML VIAL SQ SCH ×5 (07:58→21:19)
[2020-12-30] MEDS ORDERED: FLUoxetine HCL 20 MG CAP PO SCH (09:00)
[2020-12-30] MEDS ORDERED: RIVAROXABAN 20 MG TAB PO SCH (09:00)
[2020-12-30] MEDS ORDERED: METOPROLOL TARTRATE 50 MG TAB PO SCH (09:00)
[2020-12-30 10:02] LABS: INR 1.1 (<1.2); Partial Thromboplastin Time 23.9 sec (22.0-30.0); Prothrombin Time 11.1 sec (9.0-12.0)
[2020-12-30 10:05] LABS: Magnesium 1.9 mg/dL (1.6-2.3); Phosphorus 2.7 mg/dL (2.5-4.5)
--- NOTE | 2020-12-30 11:02 | ECHOF ---
Referral Reason:progressive exertional dyspnea MEASUREMENTS -------- HEIGHT: 170.2 cm WEIGHT: 78.5 kg BP: RVIDd: 3.4 cm (< 3.3) IVSd: 1.3 cm (0.6 - 1.1) LVIDd: 4.2 cm (3.9 - 5.3) LVPWd: 1.2 cm (0.6 - 1.1) IVSs: 1.6 cm LVIDs: 2.8 cm LVPWs: 1.4 cm LA Diam: 3.2 cm (2.7 - 3.8) Ao Diam: 2.7 cm (2.0 - 3.7) AV Cusp: 1.6 cm (1.5 - 2.6) LA Diam: 3.0 cm (2.7 - 3.8) MV EXCURSION: 18.742 mm (> 18.000) MV EF SLOPE: 79 mm/s (70 - 150) EPSS: 0.5 cm MV E Cristian: 0.58 m/s MV DecT: 294 ms MV A Cristian: 1.08 m/s MV E/A Ratio: 0.54 RAP: 5.00 mmHg RVSP: 37.68 mmHg FINDINGS -------- Sinus rhythm. This was a technically good study. LV size, wall thickness and systolic function are normal, with an EF greater than 55%. The left malcolm tricular size is normal. The right ventricle is normal in size. The left atrial size is normal. The right atrial size is normal. The aortic valve is trileaflet, and appears structurally normal. No aortic stenosis or regurgitation. Mild mitral regurgitation is present. Mild tricuspid regurgitation present. There is mild pulmonary hypertension. The right ventricular systolic pressure, as measured by Doppler, is 37.68mmHg. There is no pulmonic regurgitation present. Echo free space represents a pericardial fat pad. CONCLUSIONS -------- 1. LV size, wall thickness and systolic function are normal, with an EF greater than 55%. 2. The left ventricular size is normal. 3. The right ventricle is normal in size. 4. The left atrial size is normal. 5. The right atrial size is normal. 6. The aortic valve is trileaflet, and appears structurally normal. No aortic stenosis or regurgitati on. 7. Mild mitral regurgitation is present. 8. Mild tricuspid regurgitation present. 9. There is mild pulmonary hypertension. 10. The right ventricular systolic pressure, as measured by Doppler, is 37.68mmHg. 11. Echo free space represents a pericardial fat pad. GREEN [employer]UMBER GRADER: Florencia Gray RDCS
[2020-12-30 11:36] LABS: Albumin 3.2 g/dL (3.80-4.90); Albumin/Globulin Ratio 1.52 (1.60-3.17); Anion Gap 6.9 mmol/L (4.00-12.00); BUN/Creat Ratio 17.5 Ratio (12.00-20.00); Calcium 7.6 mg/dL (8.7-10.3); Carbon Dioxide 24.1 mmol/L (21.6-31.8); Globulin 2.1 g/dL (1.6-3.3); Non-African American GFR(CKD) 95.7 (60.0-200.0); Potassium 3.9 mmol/L (3.5-5.5); Total Protein 5.3 g/dL (6.2-8.2)
[2020-12-30 11:43] LABS: Reticulocyte % 6.3 % (0.5-2.0)
--- NOTE | 2020-12-30 11:45 | P.CONS ---
History of Present Illness - Reason for Consult Consult date: 12/30/20 MDS, HCL, Multlple Myeloma Requesting physician: Renato Vazquez - Chief Complaint "I Feel Horrible" - History of Present Illness Davina Patton is a 60 year old male patient who presented to [facility] Emergency department with complaints of severe headache: sensistivity to light and noise. He states he is under the care of (metastatic Melanoma) and Dr. Almanza (Myelodysplastic Syndrome). He was receiving treatment with encorafenib and binimetinib although he admits to stop taking recently due to feeling so weak he could not walk from kitchen to bathroom. I have reached out to [facility] physician bam and Dr. Almanza regarding their patient. He has apparently had m etastatic disease to brain, liver, lung. Most recently per the patient the MRI of the brain was without evidence of progression. He states his HCL is in remission after treatment. Myelodysplastic Disease details are unknown, however on his peripheral labs today 4% blast count was noted. He has no recorded fever since admission. His biggest complaint is weakness and headache. WBC = 9.8, 4% Blasts, Platelets 98K, hemoglobin 7.7. Denies evidence of bleeding. Review of Systems All systems: negative Constitutional: Reports as per HPI Past Medical History Past Medical History: Cancer, Diabetes Mellitus, GERD/Reflux, Hypertension, Thyroid Disorder Additional Past Medical History / Comment(s): per pt dx 3-2016 w/ melanoma(rt upper chest ) had sx to remove cancer along with multiple lymph nodes rt axilla also had 20 radiation tx and is taking keytruda. pt further stated has mets to lung and " tiny spot outside the brain" had 1 intense radiation tx for spot on brain approx 6 months ago- other than lung bx-no other sx on lung but taking keytruda. 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 past gerd pt stated he's not taking meds for it any more. age 10 broke rt wrist-had it reset/casted. History of Any Multi-Drug Resistant Organisms: None Reported Additional Past Surgical History / Comment(s): melanoma /lymph nodes removal. age 10 had benign moles removed. Past Anesthesia/Blood Transfusion Reactions: No Reported Reaction Additional Past Anesthesia/Blood Transfusion Reaction / Comm: has had blood transfusions-no reaction Past Psychological History: No Psychological Hx Reported Smoking Status: Current every day smoker Past Alcohol Use History: None Reported Past Drug Use History: Marijuana - Past Family History Mother Family Medical History: Dementia, Deep Vein Thrombosis (DVT), Hypertension Additional Family Medical History / Comment(s): from complications form alzheimers Father Family Medical History: CVA/TIA, Diabetes Mellitus, Hypertension Additional Family Medical History / Comment(s): hernias, colitis. Medications and Allergies Home Medications Medication Instructions Recorded Confirmed Type FLUoxetine HCL 40 mg PO DAILY 12/22/17 12/29/20 History Levothyroxine Sodium [Synthroid] 150 mcg PO DAILY 12/22/17 12/29/20 History Multivitamins, Thera [Multivitamin 1 tab PO DAILY 12/22/17 12/29/20 History (formulary)] Omeprazole 20 mg PO DAILY 12/22/17 12/29/20 History Dapagliflozin Propanediol [Farxiga] 10 mg PO DAILY 07/12/19 12/29/20 History HYDROcodone/APAP 10-325MG [Metcalf 1 tab PO BID PRN 07/12/19 12/29/20 History 10-325] Metoprolol Tartrate [Lopressor] 50 mg PO DAILY 07/12/19 12/29/20 History Binimetinib [Mektovi] 45 mg PO Q12H 12/29/20 12/29/20 History Cholecalciferol (Vitamin D3) 125 mcg PO DAILY 12/29/20 12/29/20 History [Vitamin D3 (125 MCG = 5,000 IU)] Encorafenib [Braftovi] 450 mg PO DAILY 12/29/20 12/29/20 History Glimepiride [Amaryl] 2 mg PO DAILY 12/29/20 12/29/20 History Ixekizumab [Taltz Autoinjector] 80 mg SQ Q28D 12/29/20 12/29/20 History Rivaroxaban [Xarelto] 20 mg PO DAILY 12/29/20 12/29/20 History Allergies Allergy/AdvReac Type Severity Reaction Status Date / Time No Known Allergies Allergy Verified 12/29/20 15:23 Physical Exam Vitals: Vital Signs Temp Pulse Pulse Resp BP BP Pulse Ox 12/30/20 08:00 98 F 104 H 20 130/68 98 12/30/20 06:56 102 H 20 144/70 97 12/29/20 20:30 97.9 F 107 H 20 122/83 95 12/29/20 17:13 101 H 20 137/74 98 12/29/20 14:57 93 20 120/59 97 12/29/20 13:40 98.1 F 108 H 20 104/63 98 Intake and Output 12/29/20 12/30/20 12/30/20 22:59 06:59 14:59 Output Total 900 Balance -900 Output: Urine 900 Other: # Voids 3 - Constitutional General appearance: cooperative, no acute distress - EENT Eyes: EOMI, PERRLA ENT: NA/AT, normal oropharynx - Respiratory Respiratory: bilateral: diminished - Cardiovascular Rhythm: regular - Integumentary Integumentary: pale - Neurologic Neurologic: CNII-XII intact - Musculoskeletal Musculoskeletal: generalized weakness - Psychiatric Anxious Psychiatric: A&O x's 3, appropriate affect, intact judgment & insight Results CBC & Chem 7: 12/30/20 05:42 12/30/20 05:42 Labs: Abnormal Lab Results - Last 24 Hours (Table) 12/29/20 12/29/20 12/29/20 Range/Units 14:06 14:06 14:06 WBC 12.4 H (3.8-10.6) k/uL RBC 2.66 L (4.30-5.90) m/uL Hgb 8.1 L (13.0-17.5) gm/dL Hct 24.3 L (39.0-53.0) % RDW 19.9 H (11.5-15.5) % Plt Count 112 L (150-450) k/uL Blast Cells % 4 H* % Monocytes # (Manual) 4.59 H (0-1.0) k/uL Metamyelocytes # (Man) 0.37 H (0) k/uL Myelocytes # (Manual) 0.37 H (0) k/uL Blast Cells # (Man) 0.50 H (0) k/uL Nucleated RBCs 80 H (0-0) /100 WBC D-Dimer (<0.60) mg/L FEU Sodium 133 L (137-145) mmol/L Potassium 3.3 L (3.5-5.1) mmol/L Glucose 160 H (74-99) mg/dL POC Glucose (mg/dL) (75-99) mg/dL Plasma Lactic Acid Tom (0.7-2.0) mmol/L Calcium 8.2 L (8.4-10.2) mg/dL Alkaline Phosphatase 187 H (38-126) U/L Lactate Dehydrogenase (313-618) U/L Total Protein 6.0 L (6.3-8.2) g/dL Albumin 3.0 L (3.5-5.0) g/dL Urine Protein 1+ H (Negative) Urine Glucose (UA) 2+ H (Negative) Urine Mucus Rare H (None) /hpf 12/29/20 12/29/20 12/30/20 Range/Units 14:06 17:28 05:42 WBC (3.8-10.6) k/uL RBC 2.56 L (4.30-5.90) m/uL Hgb 7.7 L (13.0-17.5) gm/dL Hct 23.5 L (39.0-53.0) % RDW 19.7 H (11.5-15.5) % Plt Count 98 L (150-450) k/uL Blast Cells % 4 H* % Monocytes # (Manual) 1.69 H (0-1.0) k/uL Metamyelocytes # (Man) 0.38 H (0) k/uL Myelocytes # (Manual) 0.38 H (0) k/uL Blast Cells # (Man) 0.38 H (0) k/uL Nucleated RBCs 118 H (0-0) /100 WBC D-Dimer 6.46 H (<0.60) mg/L FEU Sodium (137-145) mmol/L Potassium (3.5-5.1) mmol/L Glucose (74-99) mg/dL POC Glucose (mg/dL) (75-99) mg/dL Plasma Lactic Acid Tom 2.4 H* (0.7-2.0) mmol/L Calcium (8.4-10.2) mg/dL Alkaline Phosphatase (38-126) U/L Lactate Dehydrogenase (313-618) U/L Total Protein (6.3-8.2) g/dL Albumin (3.5-5.0) g/dL Urine Protein (Negative) Urine Glucose (UA) (Negative) Urine Mucus (None) /hpf 12/30/20 12/30/20 Range/Units 07:45 09:19 WBC (3.8-10.6) k/uL RBC (4.30-5.90) m/uL Hgb (13.0-17.5) gm/dL Hct (39.0-53.0) % RDW (11.5-15.5) % Plt Count (150-450) k/uL Blast Cells % % Monocytes # (Manual) (0-1.0) k/uL Metamyelocytes # (Man) (0) k/uL Myelocytes # (Manual) (0) k/uL Blast Cells # (Man) (0) k/uL Nucleated RBCs (0-0) /100 WBC D-Dimer (<0.60) mg/L FEU Sodium (137-145) mmol/L Potassium (3.5-5.1) mmol/L Glucose (74-99) mg/dL POC Glucose (mg/dL) 151 H (75-99) mg/dL Plasma Lactic Acid Tom (0.7-2.0) mmol/L Calcium (8.4-10.2) mg/dL Alkaline Phosphatase (38-126) U/L Lactate Dehydrogenase 2660 H (313-618) U/L Total Protein (6.3-8.2) g/dL Albumin (3.5-5.0) g/dL Urine Protein (Negative) Urine Glucose (UA) (Negative) Urine Mucus (None) /hpf Assessment and Plan (1) Melanoma metastatic to brain Current Visit: Yes Status: Acute Code(s): C79.31 - SECONDARY MALIGNANT NEOPLASM OF BRAIN SNOMED Code(s): 922720284 (2) Normocytic anemia Current Visit: Yes Status: Acute Code(s): D64.9 - ANEMIA, UNSPECIFIED SNOMED Code(s): 581085279 (3) Myelodysplastic disease Current Visit: Yes Status: Acute Code(s): C94.6 - MYELODYSPLASTIC DISEASE, NOT CLASSIFIED SNOMED Code(s): 018683252 (4) Hairy cell leukemia Current Visit: No Status: Acute Code(s): C91.40 - HAIRY CELL LEUKEMIA NOT HAVING ACHIEVED REMISSION SNOMED Code(s): 060709183 Plan: I have reached out ot ohis primary treating insulation sprayer (Dr. Layton) and Oncologist (Dr. Wilde) to review his case with them. He will continue to hold his prescribed treatment for metastatic melanoma until acute complaints resolve or improve Recommend full infectious work-up Further anemia work-up performed, including assessing for DIC Imaging of Brain with history of Melanoma metastatized to brain is resonable, however will wait a little longer to try try to connect with his primary treating team If Imaging of brain does not reveal etiology for severe headache, consider Lumbar puncture - To be discussed with [facility] prior to proceeding In the interim continue work-up for infectious etiology, supportive care of symptoms, Monitor bleeding, Transfusion support if hemoglobin less than 7. Hold Anticoagulation if platelets less than 50K. Receives Xarelto for Pulmonary Embolism. Immune therapy related side effects are also within the differential with his treatment he was receiving - MRI Brain, Thyroid panel, Cortisol level. Physician Attest: I have completed the full history and physical and agree with above dictation, dictated as a scribe
[2020-12-30 12:35] LABS: Glucose,Whole Blood 161 mg/dL (75-99)
[2020-12-30 13:18] LABS: T4, Free (Free Thyroxine) 1.45 ng/dL (0.78-2.19)
--- NOTE | 2020-12-30 14:10 | P.PN ---
Subjective Progress Note Date: 12/30/20 Feels okay, generally weak. No chest pain no abdominal pain no nausea no vomiting. Complains of muscle aches. Objective - Vital Signs Vital signs: Vital Signs Temp 98 F 12/30/20 08:00 Pulse 104 H 12/30/20 08:00 Resp 20 12/30/20 08:00 BP 130/68 12/30/20 08:00 Pulse Ox 98 12/30/20 08:00 Intake & Output 12/29/20 12/30/20 12/30/20 18:59 06:59 18:59 Output Total 900 Balance -900 Weight 78.471 kg Output: Urine 900 Other: # Voids 3 - Exam Constitutional: No acute distress, conversant, pleasant Eyes: Anicteric sclerae, moist conjunctiva, no lid-lag, PERRLA ENMT: NC/AT,Oropharynx clear, no erythema, exudates Neck:Supple, FROM, no masses, or JVD Lungs: Clear to auscultation, Clear to percussion Cardiovascular: Heart regular in rate and rhythm, No murmurs, gallops, or rubs no peripheral edema Abdominal: Soft Nontender, non distended, no guarding, no rebound or rigidity, Normoactive bowel sounds No hepatomegaly, No splenomegaly, No palpable mass No abdominal wall hernia noted Skin: Normal temperature, tone, texture, turgor, No induration No subcutaneous nodules, No rash, lesions, No ulcers Extremities:No digital cyanosis No clubbing, Pedal pulses intact and symmetrical Radial pulses intact and symmetrical Normal gait and station, No calf tenderness Psychiatric: Alert and oriented to person, place and time, Appropriate affect Intact judgement Neuro: Muscles Strength 5/5 in all 4 extremities, Sensation to light touch grossly present throughout, Cranial nerves II-XII grossly intact. No focal sensory deficits - Labs CBC & Chem 7: 12/30/20 05:42 12/30/20 05:42 Labs: Abnormal Lab Results - Last 24 Hours (Table) 12/29/20 12/29/20 12/29/20 Range/Units 14:06 14:06 14:06 WBC 12.4 H (3.8-10.6) k/uL RBC 2.66 L (4.30-5.90) m/uL Hgb 8.1 L (13.0-17.5) gm/dL Hct 24.3 L (39.0-53.0) % RDW 19.9 H (11.5-15.5) % Plt Count 112 L (150-450) k/uL Blast Cells % 4 H* % Monocytes # (Manual) 4.59 H (0-1.0) k/uL Metamyelocytes # (Man) 0.37 H (0) k/uL Myelocytes # (Manual) 0.37 H (0) k/uL Blast Cells # (Man) 0.50 H (0) k/uL Nucleated RBCs 80 H (0-0) /100 WBC Retic Count (0.5-2.0) % D-Dimer (<0.60) mg/L FEU Sodium 133 L (137-145) mmol/L Potassium 3.3 L (3.5-5.1) mmol/L Glucose 160 H (74-99) mg/dL POC Glucose (mg/dL) (75-99) mg/dL Plasma Lactic Acid Tom (0.7-2.0) mmol/L Calcium 8.2 L (8.4-10.2) mg/dL AST (14-35) U/L Alkaline Phosphatase 187 H (38-126) U/L Lactate Dehydrogenase (313-618) U/L Total Protein 6.0 L (6.3-8.2) g/dL Albumin 3.0 L (3.5-5.0) g/dL Albumin/Globulin Ratio (1.60-3.17) g/dL TSH (0.465-4.680) mIU/L Urine Protein 1+ H (Negative) Urine Glucose (UA) 2+ H (Negative) Urine Mucus Rare H (None) /hpf 12/29/20 12/29/20 12/29/20 Range/Units 14:06 14:06 17:28 WBC (3.8-10.6) k/uL RBC (4.30-5.90) m/uL Hgb (13.0-17.5) gm/dL Hct (39.0-53.0) % RDW (11.5-15.5) % Plt Count (150-450) k/uL Blast Cells % % Monocytes # (Manual) (0-1.0) k/uL Metamyelocytes # (Man) (0) k/uL Myelocytes # (Manual) (0) k/uL Blast Cells # (Man) (0) k/uL Nucleated RBCs (0-0) /100 WBC Retic Count (0.5-2.0) % D-Dimer 6.46 H (<0.60) mg/L FEU Sodium (137-145) mmol/L Potassium (3.5-5.1) mmol/L Glucose (74-99) mg/dL POC Glucose (mg/dL) (75-99) mg/dL Plasma Lactic Acid Tom 2.4 H* (0.7-2.0) mmol/L Calcium (8.4-10.2) mg/dL AST (14-35) U/L Alkaline Phosphatase (38-126) U/L Lactate Dehydrogenase (313-618) U/L Total Protein (6.3-8.2) g/dL Albumin (3.5-5.0) g/dL Albumin/Globulin Ratio (1.60-3.17) g/dL TSH 17.900 H (0.465-4.680) mIU/L Urine Protein (Negative) Urine Glucose (UA) (Negative) Urine Mucus (None) /hpf 12/30/20 12/30/20 12/30/20 Range/Units 05:42 05:42 07:45 WBC (3.8-10.6) k/uL RBC 2.56 L (4.30-5.90) m/uL Hgb 7.7 L (13.0-17.5) gm/dL Hct 23.5 L (39.0-53.0) % RDW 19.7 H (11.5-15.5) % Plt Count 98 L (150-450) k/uL Blast Cells % 4 H* % Monocytes # (Manual) 1.69 H (0-1.0) k/uL Metamyelocytes # (Man) 0.38 H (0) k/uL Myelocytes # (Manual) 0.38 H (0) k/uL Blast Cells # (Man) 0.38 H (0) k/uL Nucleated RBCs 118 H (0-0) /100 WBC Retic Count (0.5-2.0) % D-Dimer (<0.60) mg/L FEU Sodium (137-145) mmol/L Potassium (3.5-5.1) mmol/L Glucose 117 H (74-99) mg/dL POC Glucose (mg/dL) 151 H (75-99) mg/dL Plasma Lactic Acid Tom (0.7-2.0) mmol/L Calcium 7.6 L (8.4-10.2) mg/dL AST 38 H (14-35) U/L Alkaline Phosphatase 167 H (38-126) U/L Lactate Dehydrogenase (313-618) U/L Total Protein 5.3 L (6.3-8.2) g/dL Albumin 3.20 L (3.5-5.0) g/dL Albumin/Globulin Ratio 1.52 L (1.60-3.17) g/dL TSH (0.465-4.680) mIU/L Urine Protein (Negative) Urine Glucose (UA) (Negative) Urine Mucus (None) /hpf 12/30/20 12/30/20 12/30/20 Range/Units 09:19 09:19 12:34 WBC (3.8-10.6) k/uL RBC (4.30-5.90) m/uL Hgb (13.0-17.5) gm/dL Hct (39.0-53.0) % RDW (11.5-15.5) % Plt Count (150-450) k/uL Blast Cells % % Monocytes # (Manual) (0-1.0) k/uL Metamyelocytes # (Man) (0) k/uL Myelocytes # (Manual) (0) k/uL Blast Cells # (Man) (0) k/uL Nucleated RBCs (0-0) /100 WBC Retic Count 6.3 H (0.5-2.0) % D-Dimer (<0.60) mg/L FEU Sodium (137-145) mmol/L Potassium (3.5-5.1) mmol/L Glucose (74-99) mg/dL POC Glucose (mg/dL) 161 H (75-99) mg/dL Plasma Lactic Acid Tom (0.7-2.0) mmol/L Calcium (8.4-10.2) mg/dL AST (14-35) U/L Alkaline Phosphatase (38-126) U/L Lactate Dehydrogenase 2660 H (313-618) U/L Total Protein (6.3-8.2) g/dL Albumin (3.5-5.0) g/dL Albumin/Globulin Ratio (1.60-3.17) g/dL TSH (0.465-4.680) mIU/L Urine Protein (Negative) Urine Glucose (UA) (Negative) Urine Mucus (None) /hpf Assessment and Plan Plan: SIRS without source of infection: Supportive care, IV fluids, monitor. hypertensive heart disease : On metoprolol History of pulmonary embolism: Continue Xarelto Chronic anemia multifactorial in the setting of malignancy: Monitor H&H, h emoglobin down to 7.7 from 8.1 upon admission GERD without esophagitis: Continue PPI Diabetes type 2 with hyperglycemia: Continue sliding scale insulin Hypothyroidism: Continue Synthroid Hairy cell leukemia: Appreciate input from hematology/oncology Metastatic melanoma myelodysplastic syndrome Leukocytoses: Resolved, WBC 12.4 upon admission improved to 9.4. Thrombocytopenia: Platelets 98, continue to monitor as patient is on Cymbalta. Disposition: Pending clinical progression
[2020-12-30] MEDS ORDERED: SODIUM CHLORIDE 0.9% 1,000 ML IV SCH (14:15)
[2020-12-30 14:50] VITALS: RESP 17
[2020-12-30] MEDS ORDERED: MORPHINE SULFATE 2 MG/ML SYRINGE IVP PRN (16:34)
[2020-12-30 17:17] LABS: Glucose,Whole Blood 145 mg/dL (75-99)
[2020-12-30 20:01] VITALS: BP 123/76; PULSE 104; TEMP 98.9
[2020-12-30 21:41] LABS: % Iron Saturation 13.81 (15.00-50.00)
[2020-12-30 21:49] LABS: Ferritin 283.5 ng/mL (22.0-322.0)
[2020-12-30 22:04] LABS: Folate, Serum 16.8 ng/mL
[2020-12-31 01:24] LABS: Protein, Total 5.4 g/dL (6.2-8.2)
[2020-12-31 10:40] LABS: Free Kappa Lt Chain Qnt, Serum 3.05 mg/dL (0.33-1.94)
[2020-12-31 12:28] LABS: Immunoglobulin M 37.3 mg/dL (40.0-280.0)
[2020-12-31 14:17] LABS: Albumin 2.52 g/dL (3.80-4.90); Gamma Globulin 0.67 g/dL (0.70-1.50)
== END 2020-12-30 21:05 | disposition left against medical advice (07) ==
LOC: EC 13:34 → INTOOBSV 18:15 → 5NMEDONC 18:15 → UNDODISIN 12-30 21:05
PROVIDERS: ADMIT Internal Medicine; ATTEND Internal Medicine
DX: R53.83 Other fatigue (principal); C79.31 Secondary malignant neoplasm of brain; C90.00 Multiple myeloma not having achieved remission; C91.40 Hairy cell leukemia not having achieved remission; D46.9 Myelodysplastic syndrome, unspecified; R65.10 Systemic inflammatory response syndrome (SIRS) of non-infectious origin without acute organ dysfunction; C78.00 Secondary malignant neoplasm of unspecified lung; C78.7 Secondary malignant neoplasm of liver and intrahepatic bile duct; E87.2 Acidosis; I11.9 Hypertensive heart disease without heart failure; K21.9 Gastro-esophageal reflux disease without esophagitis; D69.59 Other secondary thrombocytopenia; R79.89 Other specified abnormal findings of blood chemistry; R06.09 Other forms of dyspnea; E11.65 Type 2 diabetes mellitus with hyperglycemia; E03.9 Hypothyroidism, unspecified; I08.1 Rheumatic disorders of both mitral and tricuspid valves; I27.20 Pulmonary hypertension, unspecified; F17.200 Nicotine dependence, unspecified, uncomplicated; Z20.822 Contact with and (suspected) exposure to COVID-19; Z79.01 Long term (current) use of anticoagulants; Z79.84 Long term (current) use of oral hypoglycemic drugs; Z79.890 Hormone replacement therapy; Z79.899 Other long term (current) drug therapy; Z85.820 Personal history of malignant melanoma of skin; Z92.3 Personal history of irradiation; Z86.711 Personal history of pulmonary embolism; Z87.81 Personal history of (healed) traumatic fracture; Z82.0 Family history of epilepsy and other diseases of the nervous system; Z83.3 Family history of diabetes mellitus; Z82.3 Family history of stroke; Z83.79 Family history of other diseases of the digestive system; Z82.49 Family history of ischemic heart disease and other diseases of the circulatory system
CPT/HCPCS: 96375 ×2; 96361 ×2; 96374; 99285; 36415; 93005; 93306; 83921; 85379; 84439; 80053 ×2; 84443; 82533; 82607; 82728; 82746; 83540; 83550; 83605; 83615; 83735 ×2; 84100; 84550; 84484; 85025 ×2; 85610 ×2; 85045; 85730 ×2; 81001; 87040; 82784 ×3; 84165; 83010; 86334; 83883; 87635; 71046; G0378 ×2; J2060; J0696; J2270

== ENCOUNTER → 2021-02-09 | Outpatient (CLI) | payer MEDICARE | END | disposition home or self-care (01) | LOC: LABWHC1 13:44 | PROVIDERS: ATTEND Registered Nurse Oncology | DX: Z53.9 Procedure and treatment not carried out, unspecified reason (principal) ==

== ENCOUNTER 2021-02-10 10:59 | Emergency (ER) | payer MEDICARE ==
[2021-02-10 11:17] VITALS: BP 105/64; PULSE 105; RESP 18; TEMP 98.2
--- NOTE | 2021-02-10 12:23 | ED ---
Recheck HPI - General Chief Complaint: Recheck/Abnormal Lab/Rx Stated Complaint: Sent for platelets from [facility] Time Seen by Provider: 02/10/21 11:28 Source: patient, RN notes reviewed Mode of arrival: ambulatory Limitations: no limitations - History of Present Illness Initial Comments: Patient is a 60-year-old male that presents to the emergency Department from [facility] get IV access for platelet transfusion. Patient does have a significant medical history with several types of cancer including stage IV malignant melanoma, hair cell leukemia, and AML. He notes that he does follow- up with his primary oncologist at [facility]. Patient's family notes the patient is chronically fatigued and weak. Patient notes that he does not want be poked anymore is getting tired and isn't sure if he wants to continue with treatment. - Related Data Home Medications Medication Instructions Recorded Confirmed FLUoxetine HCL 40 mg PO DAILY 12/22/17 02/10/21 Levothyroxine Sodium [Synthroid] 150 mcg PO DAILY 12/22/17 02/10/21 Multivitamins, Thera [Multivitamin 1 tab PO DAILY 12/22/17 02/10/21 (formulary)] Omeprazole 20 mg PO DAILY 12/22/17 02/10/21 Dapagliflozin Propanediol [Farxiga] 10 mg PO DAILY 07/12/19 02/10/21 HYDROcodone/APAP 10-325MG [[place] 1 tab PO BID PRN 07/12/19 02/10/21 10-325] Binimetinib [Mektovi] 45 mg PO Q12H 12/29/20 02/10/21 Cholecalciferol (Vitamin D3) 125 mcg PO DAILY 12/29/20 02/10/21 [Vitamin D3 (125 MCG = 5,000 IU)] Encorafenib [Braftovi] 450 mg PO DAILY 12/29/20 02/10/21 Ixekizumab [Taltz Autoinjector] 80 mg SQ Q28D 12/29/20 02/10/21 Allergies Allergy/AdvReac Type Severity Reaction Status Date / Time No Known Allergies Allergy Verified 02/10/21 10:02 Review of Systems ROS Statement: Those systems with pertinent positive or pertinent negative responses have been documented in the HPI. ROS Other: All systems not noted in ROS Statement are negative. Past Medical History Past Medical History: Cancer, Diabetes Mellitus, GERD/Reflux, Hypertension, Thyroid Disorder Additional Past Medical History / Comment(s): per pt dx 3-2017 w/ melanoma(rt upper chest ) had sx to remove cancer along with multiple lymph nodes rt axilla also had 20 radiation tx and is taking keytruda. pt further stated has mets to lung and " tiny spot outside the brain" had 1 intense radiation tx for spot on brain approx 6 months ago- other than lung bx-no other sx on lung but taking keytruda. 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 past gerd pt stated he's not taking meds for it any more. age 10 broke rt wrist-had it reset/casted. Acute myeloid leukemia History of Any Multi-Drug Resistant Organisms: None Reported Additional Past Surgical History / Comment(s): melanoma /lymph nodes removal. age 10 had benign moles removed. Past Anesthesia/Blood Transfusion Reactions: No Reported Reaction Additional Past Anesthesia/Blood Transfusion Reaction / Comment(s): has had blood transfusions-no reaction Past Psychological History: No Psychological Hx Reported Smoking Status: Current every day smoker Past Alcohol Use History: None Reported Past Drug Use History: Marijuana - Past Family History Mother Family Medical History: Dementia, Deep Vein Thrombosis (DVT), Hypertension Additional Family Medical History / Comment(s): from complications form alzheimers Father Family Medical History: CVA/TIA, Diabetes Mellitus, Hypertension Additional Family Medical History / Comment(s): hernias, colitis. General Exam Limitations: no limitations General appearance: alert, in no apparent distress Head exam: Present: atraumatic, normocephalic, normal inspection Eye exam: Present: normal appearance, PERRL, EOMI. Absent: scleral icterus, conjunctival injection, periorbital swelling ENT exam: Present: normal exam, mucous membranes moist Neck exam: Present: normal inspection. Absent: tenderness, meningismus, lymphadenopathy Respiratory exam: Present: normal lung sounds bilaterally. Absent: respiratory distress, wheezes, rales, rhonchi, stridor Cardiovascular Exam: Present: regular rate, normal rhythm, normal heart sounds. Absent: systolic murmur, diastolic murmur, rubs, gallop, clicks Extremities exam: Present: normal inspection, full ROM, normal capillary refill. Absent: tenderness, pedal edema, joint swelling, calf tenderness Neurological exam: Present: alert, oriented X3 Psychiatric exam: Present: normal affect, normal mood Skin exam: Present: warm, dry, intact, normal color, petechiae (Covering majority body.). Absent: rash Course Vital Signs 02/10/21 11:14 Temperature 98.2 F Pulse Rate 105 H Respiratory 18 Rate Blood Pressure 105/64 O2 Sat by Pulse 98 Oximetry Medical Decision Making - Medical Decision Making 60-year-old male with extensive past history involving cancer sent for IV platelet transfusion axes. Upon reviewing labs from yesterday platelets were 5 white blood cells some 3. Family members note that infusion center noted something about a possible PICC line. laborer operator was consulted and states that they would fit patient for PICC line placement. Nurse reported that patient does not only poked wants to go home and is considering hospice transition. Confirmation of patient wanting on hospice. Patient along wants us to treat his thrombocythemia and wishes to go home. He notes that he is tired and findings cancer for foreign half years and just wants to be comfortable. Patient does have home nursing and they will transition the hospice. Case discussed with Dr. Merida - Lab Data Lab Results 02/09/21 02/10/21 02/10/21 Range/Units 14:00 10:09 11:15 Blood Type A Positive Blood Type Confirm A Positive Blood Type Recheck No Previous Record Bld Type Recheck Status CABO Indicated Antibody Screen NEGATIVE Crossmatch See Detail Transfuse Platelets 02/10/21 Spec Expiration Date 02/12/2021 - 230 Disposition Clinical Impression: Myelodysplastic disease, Anemia, Thrombocytopenia, Melanoma metastatic to brain, Melanoma, Hairy cell leukemia Disposition: HOME SELF-CARE Condition: Stable Is patient prescribed a controlled substance at d/c from ED?: No Referrals: Kenyon Pierce MD [Primary Care Provider] - 1-2 days Time of Disposition: 12:55
[2021-02-10] MEDS ORDERED: diphenhydrAMINE 50 MG/ML 1 ML VIAL IM STA (12:32)
--- NOTE | 2021-02-10 13:07 | P.HPIM ---
History of Present Illness H&P Date: 02/10/21 Past Medical History Past Medical History: Cancer, Diabetes Mellitus, GERD/Reflux, Hypertension, Thyroid Disorder Additional Past Medical History / Comment(s): per pt dx 3-2016 w/ melanoma(rt upper chest ) had sx to remove cancer along with multiple lymph nodes rt axilla also had 20 radiation tx and is taking keytruda. pt further stated has mets to lung and " tiny spot outside the brain" had 1 intense radiation tx for spot on brain approx 6 months ago- other than lung bx-no other sx on lung but taking keytruda. 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 past gerd pt stated he's not taking meds for it any more. age 10 broke rt wrist-had it reset/casted. Acute myeloid leukemia History of Any Multi-Drug Resistant Organisms: None Reported Additional Past Surgical History / Comment(s): melanoma /lymph nodes removal. age 10 had benign moles removed. Past Anesthesia/Blood Transfusion Reactions: No Reported Reaction Additional Past Anesthesia/Blood Transfusion Reaction / Comment(s): has had blood transfusions-no reaction Past Psychological History: No Psychological Hx Reported Smoking Status: Current every day smoker Past Alcohol Use History: None Reported Past Drug Use History: Marijuana - Past Family History Mother Family Medical History: Dementia, Deep Vein Thrombosis (DVT), Hypertension Additional Family Medical History / Comment(s): from complications form alzheimers Father Family Medical History: CVA/TIA, Diabetes Mellitus, Hypertension Additional Family Medical History / Comment(s): hernias, colitis. Medications and Allergies Home Medications Medication Instructions Recorded Confirmed Type FLUoxetine HCL 40 mg PO DAILY 12/22/17 02/10/21 History Levothyroxine Sodium [Synthroid] 150 mcg PO DAILY 12/22/17 02/10/21 History Multivitamins, Thera [Multivitamin 1 tab PO DAILY 12/22/17 02/10/21 History (formulary)] Omeprazole 20 mg PO DAILY 12/22/17 02/10/21 History Dapagliflozin Propanediol [Farxiga] 10 mg PO DAILY 07/12/19 02/10/21 History HYDROcodone/APAP 10-325MG [[place] 1 tab PO BID PRN 07/12/19 02/10/21 History 10-325] Binimetinib [Mektovi] 45 mg PO Q12H 12/29/20 02/10/21 History Cholecalciferol (Vitamin D3) 125 mcg PO DAILY 12/29/20 02/10/21 History [Vitamin D3 (125 MCG = 5,000 IU)] Encorafenib [Braftovi] 450 mg PO DAILY 12/29/20 02/10/21 History Ixekizumab [Taltz Autoinjector] 80 mg SQ Q28D 12/29/20 02/10/21 History Allergies Allergy/AdvReac Type Severity Reaction Status Date / Time No Known Allergies Allergy Verified 02/10/21 10:02 Physical Exam Vitals: Vital Signs Temp Pulse Resp BP Pulse Ox 02/10/21 11:14 98.2 F 105 H 18 105/64 98 Intake and Output 02/09/21 02/10/21 02/10/21 22:59 06:59 14:59 Other: Weight 75.296 kg Results Labs: Abnormal Lab Results - Last 24 Hours (Table) 02/09/21 Range/Units 14:00 Crossmatch See Detail
== END 2021-02-10 13:00 | disposition home or self-care (01) ==
LOC: EC 10:59
DX: C79.31 Secondary malignant neoplasm of brain (principal); C91.40 Hairy cell leukemia not having achieved remission; D64.9 Anemia, unspecified; D69.6 Thrombocytopenia, unspecified; E11.9 Type 2 diabetes mellitus without complications; I10 Essential (primary) hypertension; K21.9 Gastro-esophageal reflux disease without esophagitis; F17.200 Nicotine dependence, unspecified, uncomplicated; Z79.84 Long term (current) use of oral hypoglycemic drugs; F12.90 Cannabis use, unspecified, uncomplicated; Z83.3 Family history of diabetes mellitus; Z82.49 Family history of ischemic heart disease and other diseases of the circulatory system; Z85.820 Personal history of malignant melanoma of skin
CPT/HCPCS: 86900; 86901; 86850; 99284; 96372; J1200